=== PATIENT | female | born 1955 | race African-American/Black ===

== ENCOUNTER → 2016-11-25 | Outpatient (REF) | payer MEDICARE ==
[2016-11-25 12:27] LABS: BASO % 0.4 % (0.0-1.0); EOS # 0.2 K/mm3 (0.0-0.50); EOS % 2.1 % (0.0-3.0); LARGE UNSTAINED CELL # 0.1 K/mm3 (0.0-0.4); LARGE UNSTAINED CELL % 1.3 % (0.0-4.0); LYMPH # 1.8 K/mm3 (1.5-4.5); LYMPH % 17.7 % (24.0-44.0); MEAN CORPUSCULAR HEMOGLOBIN 23.7 pg (27.0-33.0); MEAN CORPUSCULAR HGB CONC 32.6 g/dl (32.0-36.5); MEAN CORPUSCULAR VOLUME 72.6 fl (80.0-96.0); MONO # 0.3 K/mm3 (0.0-0.8); MONO % 2.7 % (0.0-5.0); NEUTROPHILS # 7.3 K/mm3 (1.8-7.7); NEUTROPHILS % 75.8 % (36.0-66.0); PLATELET COUNT, AUTOMATED 162 k/mm3 (150-450); RED CELL DISTRIBUTION WIDTH 13.8 % (11.5-14.5); WHITE BLOOD COUNT 9.7 K/mm3 (4.0-10.0)
[2016-11-25 12:39] LABS: ALBUMIN/GLOBULIN RATIO 0.89 (1.00-1.93); ALKALINE PHOSPHATASE 91 U/L (45-117); ALT/SGPT 9 U/L (12-78); ANION GAP 10 MEQ/L (8-16); AST/SGOT 8 U/L (15-37); BILIRUBIN,TOTAL 0.6 MG/DL (0.2-1.0); BLOOD UREA NITROGEN 15 MG/DL (7-18); CALCIUM LEVEL 9.4 MG/DL (8.5-10.1); CARBON DIOXIDE LEVEL 29 MEQ/L (21-32); CHLORIDE LEVEL 101 MEQ/L (98-107); CHOLESTEROL LEVEL 161 MG/DL (<200); FERRITIN 267 NG/ML (8-252); FREE T4 1.42 NG/DL (0.76-1.46); GLOMERULAR FILTRATION RATE > 60.0 (>51); GLUCOSE, FASTING 171 MG/DL (70-105); PERCENT SATURATION 7.8 % (13.2-37.4); POTASSIUM SERUM 3.4 MEQ/L (3.5-5.1); SODIUM LEVEL 140 MEQ/L (136-145); TOTAL IRON BINDING CAPACITY 345 UG/DL (250-450); TOTAL PROTEIN 8.5 GM/DL (6.4-8.2); TRIGLYCERIDES LEVEL 155 MG/DL (<150)
[2016-11-26 11:06] LABS: HEP C VIRUS AB SCREEN MEDICARE 0.2 INDEX (<0.8)
== END ==
LOC: M SFHCPLAZ 09:34
PROVIDERS: ATTEND Nurse Practitioner Family
DX: D64.9 Anemia, unspecified (principal); E11.9 Type 2 diabetes mellitus without complications; E78.5 Hyperlipidemia, unspecified; Z11.4 Encounter for screening for human immunodeficiency virus [HIV]; Z11.59 Encounter for screening for other viral diseases
CPT/HCPCS: 36415; 80053; 80061; 82043; 82728; 83036; 83550; 84439; 84443; 85025; 87899; G0472

== ENCOUNTER → 2016-12-17 | Outpatient (REF) | payer MEDICARE ==
[2016-12-17 15:50] LABS: REASON FOR REVIEW COMPREHENSIVE REVIEW
== END ==
LOC: M SFHCPLAZ 12:35
PROVIDERS: ATTEND Family Medicine
DX: D50.9 Iron deficiency anemia, unspecified (principal)
CPT/HCPCS: 36415; 86256; G0463

== ENCOUNTER 2017-03-23 16:54 | Inpatient (IN) | payer MEDICARE, MEDICAID ==
[~2017-03-23] VITALS: Ht 170.2 cm; Wt 81.5 kg
[2017-03-23] MEDS ORDERED: TIZA4CAP3 PO (17:12)
[2017-03-23] MEDS ORDERED: ACET300T2 PO (17:12)
[2017-03-23] MEDS ORDERED: AZAT50TA2 PO (17:12)
[2017-03-23] MEDS ORDERED: ALPR0.25 PO (17:12)
[2017-03-23] MEDS ORDERED: OMEP40CA2 PO (17:12)
[2017-03-23] MEDS ORDERED: ONDANSETRON 4MG/2ML VIAL (J2405) As Ordered ONE (17:12)
[2017-03-23] MEDS ORDERED: LISI-542 (17:12)
[2017-03-23] MEDS ORDERED: NAPR500T3 PO (17:12)
[2017-03-23] MEDS ORDERED: ATOR1TAB21 PO (17:12)
[2017-03-23] MEDS ORDERED: SERT-138 PO (17:12)
[2017-03-23] MEDS ORDERED: METF500T4 PO (17:12)
[2017-03-23] MEDS ORDERED: LISI10TA4 PO (17:12)
[2017-03-23] MEDS ORDERED: METO1TAB32 PO (17:13)
[2017-03-23] MEDS ORDERED: ONDANSETRON 4MG/2ML VIAL (J2405) IV ONE (18:00)
[2017-03-23] MEDS ORDERED: NS 1,000 ML IV ONE (18:00)
[2017-03-23 18:36] LABS: ADD MANUAL DIFFER YES; MEAN CORPUSCULAR HEMOGLOBIN 23.7 pg (27.0-33.0); MEAN CORPUSCULAR HGB CONC 34.1 g/dl (32.0-36.5); MEAN CORPUSCULAR VOLUME 69.6 fl (80.0-96.0); PLATELET COUNT, AUTOMATED 189 k/mm3 (150-450); RED CELL DISTRIBUTION WIDTH 14.8 % (11.5-14.5); WHITE BLOOD COUNT 13.3 K/mm3 (4.0-10.0)
[2017-03-23 18:47] LABS: ALBUMIN 3.7 GM/DL (3.2-5.2); ALKALINE PHOSPHATASE 90 U/L (45-117); ALT/SGPT 9 U/L (12-78); ANION GAP 9 MEQ/L (8-16); AST/SGOT 5 U/L (15-37); BILIRUBIN,DIRECT 0.1 MG/DL (0.0-0.2); BILIRUBIN,TOTAL 0.4 MG/DL (0.2-1.0); BLOOD UREA NITROGEN 11 MG/DL (7-18); CALCIUM LEVEL 9.7 MG/DL (8.5-10.1); CARBON DIOXIDE LEVEL 27 MEQ/L (21-32); CHLORIDE LEVEL 104 MEQ/L (98-107); CREATININE FOR GFR 1.08 MG/DL (0.55-1.02); GLOMERULAR FILTRATION RATE > 60.0 (>51); GLUCOSE, FASTING 156 MG/DL (70-105); SODIUM LEVEL 140 MEQ/L (136-145); TOTAL PROTEIN 8.3 GM/DL (6.4-8.2)
[2017-03-23 19:03] LABS: ANISOCYTOSIS 1+; MICROCYTOSIS 3+
--- NOTE | 2017-03-23 19:40 | REP ---
CT BRAIN WITHOUT CONTRAST: 03/23/2017. Clinical history: Intractable vertigo. Findings: There are no prior studies. Lateral ventricles symmetric somewhat dilated and proportionate to the mild to moderate degree of atrophy. Third and fourth ventricles were similarly proportionate in size. Basal ganglia show no acute infarct, hemorrhage or mass. The ernandez-white junction differentiation is well maintained. The cortical stripe is preserved. There is no vascular territory infarct, hemorrhage, mass, mass effect or edema. There is old encephalomalacia in the high posterior parietal occipital region on the right and occipital region on the left. Calcifications in the falx. Brainstem was unremarkable. Cerebellar atrophy is noted. The basal cisterns intact. Mastoids and sinuses clear. The skull base and calvarium show no fracture or focal lesion. Impression: 1. Ventriculomegaly and atrophy in proportion and greater than would be expected for age. 2. Encephalomalacia with old infarcts posterior right parietal occipital and left occipital lobe. No intracranial hemorrhage, acute vascular territory infarct, mass, mass effect or edema. 3. Chronic small vessel white matter ischemic changes. No other significant finding. Signed by Chuy Montoya MD 03/24/2017 08:56 A
--- NOTE | 2017-03-23 19:46 | REP ---
RIGHT ANKLE SERIES, COMPLETE: 03/23/2017: Clinical history: Twisting injury to the right ankle. Findings: Four view show the ankle mortis symmetric and preserved. There is no talar dome osteochondral defect. I see no fracture or focal lesion in the distal tibia or fibula. Subtalar joints intact. Both plantar and Achilles insertional spurs are seen and small slight flattening of the hind foot arch. No other findings. Impression. 1. No visible or displaced fracture, avulsion or disruption of the mortise joint.2. Small heel spurs and flattening of the arch. Signed by Chuy Montoya MD 03/24/2017 08:56 A
[2017-03-23] MEDS: HumaLOG INSULIN (NovoLOG) PER UNIT SC SCH (21:00)
[2017-03-23] MEDS ORDERED: ACETAMINOPHEN TAB 650MG DOSE (2X325MG) PO PRN (22:30)
[2017-03-23] MEDS ORDERED: ONDANSETRON 4MG/2ML VIAL (J2405) IV PRN (22:30)
[2017-03-23] MEDS ORDERED: VITA500C10 PO (22:41)
[2017-03-23] MEDS ORDERED: VITACHTA PO (22:41)
[2017-03-23] MEDS ORDERED: traMADol 50 MG TAB PO PRN (22:45)
[2017-03-23] MEDS ORDERED: tiZANidine 4 MG TAB PO PRN (22:45)
[2017-03-23] MEDS ORDERED: GLUCAGON FOR INJ 1 MG VIAL (J1610) SC PRN (23:00)
[2017-03-23] MEDS ORDERED: GLUCOSE 4 GM CHEW TABLET PO PRN (23:00)
[2017-03-23] MEDS ORDERED: DEXTROSE 50% 50 ML SYRINGE IV PRN (23:00)
[2017-03-24] MEDS: SERTRALINE 100 MG TAB PO SCH ×2 (01:02→21:20)
[2017-03-24] MEDS: ATORVASTATIN 20 MG TAB PO SCH ×2 (01:03→21:21)
[2017-03-24] MEDS: SENOKOT S TAB PO SCH ×3 (01:03→21:20)
[2017-03-24] MEDS: ALPRAZolam 0.25 MG TAB PO SCH ×2 (01:03→21:21)
[2017-03-24] MEDS: NS 1,000 ML IV SCH ×2 (02:00→12:31)
[2017-03-24] MEDS: HEPARIN SOD (PORCINE) 5000 UNITS/ML VIAL SQ SCH ×3 (06:01→21:21)
[2017-03-24 07:36] LABS: BASO % 0.4 % (0.0-1.0); EOS # 0.1 K/mm3 (0.0-0.50); EOS % 1.4 % (0.0-3.0); LARGE UNSTAINED CELL # 0.1 K/mm3 (0.0-0.4); LYMPH # 1.8 K/mm3 (1.5-4.5); LYMPH % 17.7 % (24.0-44.0); MEAN CORPUSCULAR HEMOGLOBIN 23.1 pg (27.0-33.0); MEAN CORPUSCULAR VOLUME 70.1 fl (80.0-96.0); MONO # 0.3 K/mm3 (0.0-0.8); MONO % 3.5 % (0.0-5.0); NEUTROPHILS # 7.3 K/mm3 (1.8-7.7); PLATELET COUNT, AUTOMATED 148 k/mm3 (150-450); RED CELL DISTRIBUTION WIDTH 14.8 % (11.5-14.5); WHITE BLOOD COUNT 9.6 K/mm3 (4.0-10.0)
[2017-03-24 07:50] LABS: ANION GAP 5 MEQ/L (8-16); BLOOD UREA NITROGEN 12 MG/DL (7-18); CALCIUM LEVEL 8.9 MG/DL (8.5-10.1); CARBON DIOXIDE LEVEL 30 MEQ/L (21-32); CHLORIDE LEVEL 106 MEQ/L (98-107); FERRITIN 157 NG/ML (8-252); GLOMERULAR FILTRATION RATE > 60.0 (>51); GLUCOSE, FASTING 120 MG/DL (70-105); PERCENT SATURATION 12.7 % (13.2-45.0); POTASSIUM SERUM 3.6 MEQ/L (3.5-5.1); SODIUM LEVEL 141 MEQ/L (136-145); TOTAL IRON BINDING CAPACITY 251 UG/DL (250-450)
[2017-03-24] MEDS: HumaLOG INSULIN (NovoLOG) PER UNIT SC SCH ×4 (08:13→21:00)
[2017-03-24 08:30] LABS: ERYTHROCYTE SEDIMENTATION RATE 54 mm/hr (0-30)
--- NOTE | 2017-03-24 08:40 | IPNPDOC ---
Text Note Date of Service The patient was seen on 03/24/17. NOTE Due to the dictated H&P was not up yet. I am write this to provide some basic information regarding this patient. She is a 61 yo black female presented due to unsteady gait and nausea, vomiting , dizziness started 3 to 4 days ago. She stated when she walks she feels like she was drunk. She also admits to severe nausea, vomiting, none bloody, none bilious, worse with food or drink. She also started having diarrhea yesterday, which was watery and non bloody. She also admits to right temporal headache that was mildly tender to touch started around the same time. She also admits to blurred vision of both eyes that has resolved already. Denies fever/chill, chest pain, sob, abdominal pain, problems with urination. Please see full H&P dictated. Assessment and plan: 1) unsteady gait. CT head did should ventriculomegaly and old infarcts. Dr. Sharma from neurology was consulted and agreed to see patient. Neurocheck. Fall precaution. PT/OT. 2) nausea, vomiting, diarrhea. Possible gastroenteritis vs related to ventriculomegaly. IVF. Clear liquid diet now, advance as tolerated. 3) Right temporal headache that was tender to palpation on examination. Suspect giant cell arteritis. ESR ordered. 4) Chronic conditions. Lupus, DM2, HTN, HLD, hx of CVA and CAD s/p stents. Continue home medications. Holding lisinopril due to dizziness, restart as needed. Her metoprolol was recently lowered from 50 mg to 25 mg by primary due to she was feeling dizzy. Patient discussed with Dr. Harp. LUCY,Kristen, I+O VS, Kristen, I+O Laboratory Tests 03/23/17 18:01 Red Blood Count 4.58, Mean Corpuscular Volume 69.6 L, Mean Corpuscular Hemoglobin 23.7 L, Mean Corpuscular Hemoglobin Concent 34.1, Red Cell Distribution Width 14.8 H 03/24/17 07:10 Red Blood Count 4.28, Mean Corpuscular Volume 70.1 L, Mean Corpuscular Hemoglobin 23.1 L, Mean Corpuscular Hemoglobin Concent 33.0, Red Cell Distribution Width 14.8 H, Neutrophils (%) (Auto) 76.0 H, Lymphocytes (%) (Auto ) 17.7 L, Monocytes (%) (Auto) 3.5, Eosinophils (%) (Auto) 1.4, Basophils (%) ( Auto) 0.4, Neutrophils # (Auto) 7.3, Lymphocytes # (Auto) 1.8, Monocytes # (Auto ) 0.3, Eosinophils # (Auto) 0.1, Basophils # (Auto) 0.0, Calcium Level 8.9 Vital Signs Date Time Temp Pulse Resp B/P (MAP) Pulse Ox O2 Delivery O2 Flow Rate FiO2 03/24/17 07:58 78 97 03/24/17 05:44 96.9 03/23/17 23:04 16 Room Air GME ATTESTATION GME ATTESTATION My preceptor for this patient encounter was physically present in the building during the encounter and was fully available. As needed, all aspects of the patient interview, examination, medical decision making process, and medical care plan development were reviewed and approved by the preceptor. Preceptor is aware and concurs with the plan as stated in the body of this note and will attest to such by his/her cosignature. JUAN MANUEL BLACK DO Mar 24, 2017 08:40
[2017-03-24] MEDS ORDERED: LISINOPRIL 10 MG TAB PO SCH (09:00)
[2017-03-24] MEDS ORDERED: azaTHIOprine 50 MG TAB (J7500) PO SCH (09:00)
[2017-03-24 09:03] LABS: FOLATE 23.9 NG/ML (>5.4)
[2017-03-24 09:04] LABS: VITAMIN B12 LEVEL 480 PG/ML (247-911)
[2017-03-24] MEDS: MULTIVITAMINS CHILDREN'S CHEWABLE TABLET PO SCH (09:34)
[2017-03-24] MEDS: ASPIRIN 81 MG ENTERIC TAB PO SCH (09:34)
[2017-03-24] MEDS: OMEPRAZOLE 20 MG CAP PO SCH (09:34)
[2017-03-24] MEDS: ASCORBIC ACID 500 MG TAB PO SCH (09:35)
[2017-03-24] MEDS: METOPROLOL SUCC *XL* 25MG TAB (TopROL *XL*) PO SCH (09:35)
[2017-03-24 10:34] LABS: COMPLEMENT C4 23.7 MG/DL (10-40)
--- NOTE | 2017-03-24 13:20 | HPE ---
DATE OF ADMISSION: 03/23/2017 Time vanda was seen was at roughly 1:30 a.m. Patient's primary care provider is Dr. Hudson Sinclair. Chief complaint is dizziness, gait instability, walking like a drunk per patient. HISTORY OF PRESENT ILLNESS: 61-year-old female with past medical history of [id number], type 2 diabetes, lupus, osteoarthritis, depression and anxiety, gastroesophageal reflux disease (GERD), irritable bowel syndrome (IBS), anemia, hypertension, hyperlipidemia, coronary artery disease, status post one stent in the left anterior descending (LAD), allergic rhinitis, presented with unstable gait. Per patient, she feels like she walks like a drunk. She also has feeling lightheadedness and dizzy for the past 3-4 days. She also admits to feeling nauseous and vomited up whatever she eats and drinks. However, it was nonbilious and nonbloody. She also admits to a mild headache at the right temporal region. Admits to blurred vision several days ago as well. Per patient, this has happened in the past similar to when she had a lupus flair. However, this time it is much worse. She had a normal bowel movement until this afternoon. She had two diarrheas. Otherwise, she denies any fever or chills. Denies any abdominal pain, any blood in the urine or stool. She did just saw patient's primary care provider, Dr. Sinclair on 03/22/2017 and stated that her metoprolol succinate was reduced from 50 to 25 mg. Also, just a few weeks ago, it was increased from 25 to 50 mg due to blood pressure was elevated with the systolic in the 160s per patient. However, looking back at the patient's record , it was not found that the patient was on metoprolol before. It appears to be a new medication just started back on 03/22/2017. Patient's daughter were also in the room, who is a more reliable historian than the patient. Patient, herself appears to have poor memory. Patient was not on metoprolol succinate 50 at home on record. ALLERGIES: NO KNOWN DRUG ALLERGY. HOME MEDICATIONS: Including: - naproxen 500 mg one tablet every 12 hours - promethazine 25 mg half to one tablet as needed every 12 hours - vitamin D3 2000 units one tablet by mouth daily - vitamin B12 100 mcg one tablet by mouth daily - Benadryl 25 mg one tablet by mouth as needed every 6 hours - aspirin 81 mg one tablet by mouth daily - metoprolol succinate 50 mg tablet once daily - Flonase 50 mcg two spray in each nares once daily - gabapentin 300 mg one tablet by mouth four times a day as needed - ferrous sulfate 325 mg one tablet by mouth daily - nitroglycerin 0.4 mg one tablet sublingual as needed - atorvastatin 20 mg one tablet by mouth daily - metformin 500 mg extended release four tablets with evening meals once daily - sertraline 100 mg one tablet by mouth daily - omeprazole 40 mg one tablet by mouth daily - Xanax 0.25 mg one tablet by mouth twice a day as needed - azathioprine 50 mg one tablet by mouth daily PAST MEDICAL HISTORY: Includin. Type 2 diabetes, not on insulin. 2. Lupus. 3. Osteoarthritis. 4. Depression/anxiety. 5. GERD. 6. Irritable bowel syndrome. 7. Anemia. 8. Hypertension. 9. Hyperlipidemia. 10. Allergic rhinitis. 11. Coronary artery disease, status post myocardial infarction (VT) and one stent. 12. Possible history of CVA. PAST SURGICAL HISTORY: Includin. Hysterectomy. 2. Tonsillectomy. 3. Cholecystectomy. 4. Cardiac stent placement of the LAD in 2009. SOCIAL HISTORY: Patient denies any smoking. Quit 3 months ago. Used to smoke 1 pack per day for 30 years. Denies any drinking or recreational drug use. Patient currently lives with her daughter. Have no pets. FAMILY HISTORY: Patient's mother had diabetes and hypertension. Sister from lupus. REVIEW OF SYSTEMS: GENERAL: Patient denies any recent traveling or sick contact. Denies any fever or chills. Admits to generalized dizziness. Admits to gait imbalance. HEENT: Denies any changes with smell, hearing or taste. Admits to blurred vision a few days ago. Denies any trouble swallowing. CARDIOVASCULAR: Denies any chest pain, trouble breathing. Admits to dizziness. PULMONARY: Denies any trouble breathing. GASTROINTESTINAL (GI): Admits to nausea, vomiting that is worse with food, also just started diarrhea today. However, the diarrhea and vomitus was nonbloody. GENITOURINARY (): Denies any problem with urination, urinary urgency or blood in the urine. HEMATOLOGY/ONCOLOGY: Denies any easy bruising or any bleeding anywhere. Denies any weight changes. ENDOCRINE: Admits to type 2 diabetes. Denies any cold or hot intolerance. SKIN: Denies any rash or ulcerations, lumps or bumps. NEUROLOGIC: Denies any weakness on any one side of her body. However, she did admit to a stroke in the past and also admits to feeling generalized dizziness. Also, she admits to walking feeling like she is drunk. PSYCHIATRIC: Admits to anxiety/depression. PHYSICAL EXAMINATION: VITAL SIGNS: Temperature 96.7. Pulse 82. Respirations 18. Blood pressure 166/72. Oxygen was satting at 100% on room air. GENERAL: Patient is a pleasant, elderly female who was alert, awake, oriented times three. Does not appear to be in distress, lying comfortably in bed with head elevated at 30 degrees. HEENT: Normocephalic, atraumatic. Extraocular movements intact. Mucous moist. NECK: Supple. No neck lymphadenopathy. CARDIOVASCULAR: Regular rate, rhythm. 2/6 systolic heart murmur. LUNGS: Clear to auscultate bilaterally. No wheeze, rales, rhonchi. ABDOMEN: Positive bowel sounds. Soft. Nontender. Nondistended. No peritoneal signs. No ecchymosis. EXTREMITIES: No edema, clubbing or cyanosis. SKIN: Warm and dry. NEUROLOGIC: Cranial nerves II-XII intact. No neurological deficit. However, patient's right temporal region was mildly tender to palpation. LABORATORIES: WBC 13.3, hemoglobin 10.9, hematocrit 31.8 with platelet count of 189, MCV of 69.6. Sodium 140, potassium 4, chloride 104, bicarbonate 27, BUN 11, creatinine 1.08, GFR greater than 60, fasting glucose 156, calcium 9.7, total bilirubin 0.4, direct bilirubin 0.1, AST 5, ALT 9, alkaline phosphatase 90, total CK 43, CK-MB 1, troponin less than 0.02, total protein 8.3, albumin 3.7, lipase 79, glucose 117. Blood culture times two is pending. Patient had a head CT in the emergency room without contrast. It shows ventriculomegaly and atrophy in proportion and greater than would expect for age. Encephalomalacia with old infarcts posterior right parietal lobe and lateral occipital lobe. No acute intracranial hemorrhage or acute vascular territory infarct mass, mass effect or edema. Chronic small vessel white matter ischemic changes. No other significant finding. Patient also had a ankle x-ray for the right ankle, which shows no visible displaced fracture, avulsion, disruption of the mortis joint, a small heel spur and flattening of the arch. ASSESSMENT AND PLAN: 61-year-old female with past medical history most significantly for lupus, type 2 diabetes, coronary artery disease status post myocardial infarction and one stent, history of stroke, hypertension, hyperlipidemia, irritable bowel syndrome, gastroesophageal reflux disease, anxiety/depression, allergic rhinitis presented with: 1. Gait instability with headache and nausea, vomiting and also just started diarrhea today. Dr. Sharma from neurology will be contacted in the morning to help to assess patient's gait instability. CT of the head does show ventriculomegaly and atrophy in addition to encephalomalacia and old infarcts posterior right parietooccipital and left lobe. Continue patient on fall precaution and start patient only on clear liquid diet for now due to nausea and vomiting. Will check orthostatic vital signs. Continue Zofran every 6 hours as needed. At this point, patient's differential possibly include hydrocephalus and transient ischemic attack (TIA) versus gastroenteritis versus side effect of metoprolol, which was recently increased, then decreased again versus from lupus. Also, possibly joint osteoarthritis. Continue to monitor patient. 2. Nausea, vomiting and diarrhea possibly secondary to gastroenteritis. GI panel has been ordered. Will followup. Blood culture times two has been ordered too. Will followup due elevated white count, also poor oral intake with nausea and vomiting. 3. Headache with right temporal region mildly tender to palpation. Erythrocyte sedimentation rate (ESR) has been ordered. Will followup. Patient also had bilateral blurred vision, however. At this point, the suspicion for giant cell arteritis is low. However, will obtain an ESR and continue to monitor patient. 4. Dizziness possibly secondary to stated above. Creatinine is slightly above 1, which was 1.08. Will start patient on gentle hydration with normal saline at a rate of 100 mL/hr. 5. Type 2 diabetes. Continue insulin sliding scales. 6. History of lupus. Continue home medication. 7. Anxiety/depression. Continue home Xanax, sertraline and tizanidine. 8. Irritable bowel syndrome. Continue to monitor. 9. History of hypertension. Continue atenolol. Lisinopril has been discontinued at this point due to patient complaint of dizziness. Will restart as needed. 10. History of coronary artery disease status post myocardial infarction and stent. Continue beta-beth, aspirin and statin. 11. Deep venous thrombosis (DVT) prophylaxis. Continue subcu heparin 5000 units subcutaneously every 8 hours. 12. Fluid, electrolyte and diet. Patient is on normal at a rate of 100 mL/hr and there is no electrolyte abnormalities at this point besides the hyperglycemia. Will start patient on clear liquid diet that is consistent carbohydrate. DISPOSITION: Patient had gait instability. Neurology has been consulted. Will followup with their recommendation. Patient also has nausea, vomiting and diarrhea, possibly gastroenteritis versus related to neurological structure such as hydrocephalus. Patient also has a headache. Will rule out giant cell arteritis. In addition, she does have anemia. Will obtain iron study, B12 and folate. Patient's morning attending is Dr. Yan. Patient has been discussed with the attending doctor, Dr. Harp. My preceptor for this patient encounter was Dr. Ford Harp. The preceptor was physically present in the building during the encounter and was fully available. As needed, all aspects of the patient interview, examination, medical decision making process, and medical care plan development were reviewed and approved by the preceptor. The preceptor is aware and concurs with the plan as stated in the body of this note and will attest to such by his/her co-signature. JOLYNN
--- NOTE | 2017-03-24 13:36 | IPN ---
DATE: 03/24/2017 61-year-old female seen at bedside. She still feels somewhat weak, dizzy intermittently but she states she is going to the restroom fine. She has had no more episodes of nausea, vomiting and diarrhea. According to her family members this started approximately 3 days ago, progressively got worse yesterday. She denies any hematochezia. Denies any dysuria or frequency, but she was noted to have a slightly increased white count when she came in as well as sed rate. PHYSICAL EXAMINATION: Temperature is 96.9, pulse 78, respiratory rate is 16, blood pressure is 140/79, SPO2 is 98% on room air. GENERAL: The patient appears to be in no acute distress. She is alert and oriented, pleasant. HEENT: Unremarkable. Mucosal membranes relatively moist. NECK: Supple. LUNGS: Clear to auscultation. HEART: Regular rate and rhythm. ABDOMEN: Soft. EXTREMITIES: No edema or calf tenderness. LABORATORY DATA: White count is 9.6 down from 13,000, hemoglobin 9.9 and platelets are 148,000. Sodium 141, potassium 3.6, chloride 106, bicarb 30, anion gap 5, BUN is 12, creatinine 0.9, glucose 120. Iron studies show a total iron of 32, TIBC 251, transferrin 12.7, and her ferritin is 157. This would not be consistent with iron deficient anemia nor would it be consistent with anemia of chronic disease since her ferritin level is normal. Her B12 level was 480, folate level was 23.9, anticardiolipin is pending. CHRISTINA is pending. Total complement is pending. Blood cultures are pending times two. Head CT as documented previously ventriculomegaly and atrophy in proportion greater than would be expected for age, encephalomalacia with old infarcts posterior right parietal, occipital and left occipital lobe. No intracranial hemorrhage, acute vascular territory infarct, mass, mass effect or edema. Chronic small vessel white matter ischemic changes. No other significant findings. ASSESSMENT/PLAN: 1. Unsteady gait with CT findings outlined above. Dr. Sharma has been consulted. Appreciate further input from him. Continue neuro checks, physical therapy and occupational therapy. 2. Elevated sed rate with right temporal headache. The note reflective this morning was questionable giant cell arteritis. She does not have any visual complaints, no amaurosis fugax complaints when you ask her and I would suspect that the sed rate would be higher than it is. I am going to forego any prednisone for right now until I have had a chance to discuss this further with neurology and once neurology has had a chance to see her, but that is a part of the differential of her symptomatology, is possible polymyalgia rheumatica with or without giant-cell arteritis. 3. Chronic conditions such as lupus. 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 4. Diabetes. Continue fingersticks a.c. and at bedtime. I will continue to follow and make adjustments in her medications as needed. 5. Hyperlipidemia. Continue statin. 6. Prior history of CVA as outlined above. Again, appreciate neurology's input as well as physical therapy and occupational therapy. 7. Coronary artery stent placements in the past. 8. Deep vein thrombosis (DVT) prophylaxis with subcu heparin.
[2017-03-24 14:12] VITALS: BP 154/71
[2017-03-24 16:00] VITALS: BP 136/65
[2017-03-24 18:00] VITALS: BP_SYST 160; BP_DIAS 69; BP_DIAS 70
[2017-03-24 20:00] VITALS: BP 170/74
--- NOTE | 2017-03-24 20:30 | REPUSA ---
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 History of lupus. Comparison is made to previous head CT dated . TECHNIQUE: Multisequence, multiplanar MRI imaging of brain without contrast. FINDINGS: The lateral, third, and fourth ventricles are prominent consistent with moderate degree of generalized cerebral atrophy. There is no evidence of intracranial mass, hemorrhage, midline shift, acute infarct, or abnormal extra-axial fluid collection seen. Paranasal sinuses and mastoids are clear. Pituitary gland and optic chiasm and orbits are normal. C PA angle regions are normal. There is normal signal void seen in the rosebud of Gibson vessels. IMPRESSION: Enlargement of the ventricles indicating moderate degree of generalized cerebral atrophy, without evidence of intracranial mass, hemorrhage, or acute infarct seen at this time.
[2017-03-24 21:31] VITALS: BP 150/78
[2017-03-24] MEDS: NORTRIPTYLINE 25 MG CAP PO SCH (23:50)
[2017-03-24 23:59] VITALS: BP_SYST 141; BP_SYST 150; BP_SYST 154; BP_DIAS 74; BP_DIAS 75; BP_DIAS 77
--- NOTE | 2017-03-25 00:02 | PHACANCOPD ---
PHARMACY VANCOMYCIN DOSING Pt Demographics Demographics Patient Age:61 , Weight:73.200 , Gender: female Adjusted Body Weight Date: 03/24/17, Adjusted Body Weight: Kg Events Past 24 Hours Events Past 24 Hours: NO: Dialysis, Diuretic Therapy, Change in CrCl, Fever, Elevation in WBC, Pending Diagnostics, Pending Procedures, Other Vancomycin Vancomycin Target Ranges: 15-20 mcg/ml Vancomycin Load Y/N: Yes Load Dose Date Time Vancomycin Load Dose: 1500MG Date: 03-25 Time: 0000 Vancomycin Dose Date: 03/24/17. Current Vancomycin Dose: [1000mg q12h] Intermittent Dosing?: No Labs Labs Item Value Date Time White Blood Count 9.6 K/mm3 03/24/17 0710 Creatinine 0.90 MG/DL 03/24/17 0710 Blood Urea Nitrogen 12 MG/DL 03/24/17 0710 Vital Signs Label Value Date Time Patient Temperature 98.0 degrees F 03/24/171999 Temperature Source Temporal 03/24/171999 Micro Microbiology 03/24/17 Blood Culture - Preliminary, Resulted 03/24/17 Blood Culture, Received Pending Creatinine Clearance Date:03/24/17. Creatinine Clearance: [~70]. Pending Labs Trough 0818 @2300 Assessment and Plan Maintaining Current Dose?: Yes Reason for dose change: No Dose Change Pharmacist Note Pharmacist Note Date: 03/24/17. Pharmacist note:Dosed at 1000mg q12h with a trough ordered for 08 -18 @2300. Will continue to monitor and make adjustments as needed [facility] Mar 25, 2017 00:02
[2017-03-25] MEDS: VANCOMYCIN HCL 1,000 MG, VIAL MATE ADAPTER 1 EACH in D5W 250 ML IV SCH ×2 (00:56→12:02)
[2017-03-25] MEDS ORDERED: VANCOMYCIN HCL 500 MG in D5W MINI-BAG PLUS 100 ML IV ONE (01:00)
[2017-03-25 04:00] VITALS: BP 130/69
[2017-03-25] MEDS: HEPARIN SOD (PORCINE) 5000 UNITS/ML VIAL SQ SCH ×3 (05:25→22:59)
[2017-03-25 05:39] LABS: BASO % 0.5 % (0.0-1.0); EOS # 0.2 K/mm3 (0.0-0.50); EOS % 2.8 % (0.0-3.0); LARGE UNSTAINED CELL # 0.1 K/mm3 (0.0-0.4); LARGE UNSTAINED CELL % 1.1 % (0.0-4.0); LYMPH % 23.3 % (24.0-44.0); MEAN CORPUSCULAR HEMOGLOBIN 23.4 pg (27.0-33.0); MEAN CORPUSCULAR HGB CONC 33.4 g/dl (32.0-36.5); MONO # 0.2 K/mm3 (0.0-0.8); MONO % 2.8 % (0.0-5.0); NEUTROPHILS # 5.7 K/mm3 (1.8-7.7); NEUTROPHILS % 69.5 % (36.0-66.0); PLATELET COUNT, AUTOMATED 155 k/mm3 (150-450); RED CELL DISTRIBUTION WIDTH 14.8 % (11.5-14.5); WHITE BLOOD COUNT 8.2 K/mm3 (4.0-10.0)
[2017-03-25 05:52] LABS: ANION GAP 8 MEQ/L (8-16); BLOOD UREA NITROGEN 8 MG/DL (7-18); CALCIUM LEVEL 9.1 MG/DL (8.5-10.1); CARBON DIOXIDE LEVEL 29 MEQ/L (21-32); CHLORIDE LEVEL 106 MEQ/L (98-107); GLOMERULAR FILTRATION RATE > 60.0 (>51); GLUCOSE, FASTING 111 MG/DL (70-105); POTASSIUM SERUM 3.8 MEQ/L (3.5-5.1); SODIUM LEVEL 143 MEQ/L (136-145)
[2017-03-25 08:00] VITALS: BP 144/78
[2017-03-25] MEDS: HumaLOG INSULIN (NovoLOG) PER UNIT SC SCH ×4 (08:08→20:20)
[2017-03-25] MEDS: ASCORBIC ACID 500 MG TAB PO SCH (08:09)
[2017-03-25] MEDS: METOPROLOL SUCC *XL* 25MG TAB (TopROL *XL*) PO SCH (08:09)
[2017-03-25] MEDS: OMEPRAZOLE 20 MG CAP PO SCH (08:09)
[2017-03-25] MEDS: LORATADINE 10 MG TAB PO SCH (08:09)
[2017-03-25] MEDS: ASPIRIN 81 MG ENTERIC TAB PO SCH (08:09)
[2017-03-25] MEDS: MULTIVITAMINS CHILDREN'S CHEWABLE TABLET PO SCH (08:09)
[2017-03-25] MEDS: FLUTICASONE PROP 0.05% NASAL SPRAY 16 GM (FLONASE) SCH (08:10)
[2017-03-25] MEDS: SENOKOT S TAB PO SCH ×2 (08:10→20:39)
--- NOTE | 2017-03-25 08:39 | ECGEPIP ---
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
[2017-03-25] MEDS ORDERED: SLF 3 ML SYR IV PRN (09:30)
--- NOTE | 2017-03-25 10:32 | REP ---
MR angiography the brain without contrast: History: CVA. Technique: 3-D [id number] MR angiography of the brain is acquired in the usual fashion and maximal intensity projection images were generated in rotational format about the vertical and horizontal axes. In addition, source axial T1-weighted images are viewed in cine mode. MR angiographic findings: The right distal vertebral artery is patent. The left distal vertebral artery ends without anastomosing with the basilar. The basilar artery is somewhat small diffusely. Posterior cerebral and superior cerebellar vessels are patent bilaterally. There is persistent origin of the left posterior cerebral artery. Posterior communicator arteries are patent bilaterally. The distal internal carotid arteries are unremarkable. Anterior and middle cerebral arteries appear intact. There is no visible hernandez aneurysm or arteriovenous malformation. Impression: Somewhat diminutive size of the posterior circulation. Basilar artery fed only by the right vertebral. Persistent origin of the left posterior cerebral artery. Otherwise unremarkable MR angiography the brain. Signed by Jordon Calles MD 03/25/2017 12:51 P
--- NOTE | 2017-03-25 10:56 | REP ---
MR ANGIOGRAPHY OF THE CAROTIDS WITHOUT AND WITH IV GADOLINIUM: HISTORY: Stroke. TECHNIQUE: The gadolinium enhancement dose is 25 mL of intravenous ProHance. Pre and post gadolinium enhanced MR angiography is acquired. Maximal intensity projection images are generated and viewed rotational. Source axial and coronal images are reviewed. MR ANGIOGRAPHIC FINDINGS: The great vessel origins are unremarkable. The bovine arch anomaly is seen incidentally. The common carotid arteries are unremarkable bilaterally. The proximal vertebral arteries are intact and symmetric. There is mild plaquing in the carotid bulbs bilaterally right a little more so than left. 30% stenosis right proximal internal carotid artery is seen. No high-grade stenosis seen on either side. No significant plaquing on the left. Internal carotid arteries are slightly tortuous but intact. IMPRESSION: No high-grade carotid stenosis seen. Mild carotid bulb plaquing bilaterally. Signed by Jordon Calles MD 03/25/2017 12:51 P
[2017-03-25 12:00] VITALS: BP 199/87
[2017-03-25] MEDS: SLF 3 ML SYR IV SCH ×2 (12:03→20:40)
[2017-03-25 16:00] VITALS: BP 134/77
[2017-03-25 19:22] VITALS: BP 148/70
[2017-03-25] MEDS: SERTRALINE 100 MG TAB PO SCH (20:39)
[2017-03-25] MEDS: NORTRIPTYLINE 25 MG CAP PO SCH (20:39)
[2017-03-25] MEDS: ATORVASTATIN 20 MG TAB PO SCH (20:39)
[2017-03-25] MEDS: ALPRAZolam 0.25 MG TAB PO SCH (20:39)
[2017-03-25 23:59] VITALS: BP 148/70
[2017-03-26] VITALS (20 sets, daily range): BP systolic 117–150; BP diastolic 63–78; O2SAT 90–96
[2017-03-26 00:06] LABS: SJOGREN'S ANTI SS-A 5.5 AI (0.0-0.9); SJOGREN'S ANTI SS-B <0.2 AI (0.0-0.9)
[2017-03-26] MEDS: VANCOMYCIN HCL 1,000 MG, VIAL MATE ADAPTER 1 EACH in D5W 250 ML IV SCH ×2 (00:08→12:44)
--- NOTE | 2017-03-26 01:07 | PHACANCOPD ---
PHARMACY VANCOMYCIN DOSING Pt Demographics Demographics Patient Age:61 , Weight:78.600 , Gender: female Adjusted Body Weight Date: 03/24/17, Adjusted Body Weight: Kg Events Past 24 Hours Events Past 24 Hours: NO: Dialysis, Diuretic Therapy, Change in CrCl, Fever, Elevation in WBC, Pending Diagnostics, Pending Procedures, Other Vancomycin Vancomycin Target Ranges: 15-20 mcg/ml Vancomycin Load Y/N: Yes Load Dose Date Time Vancomycin Load Dose: 1500MG Date: 03-25 Time: 0000 Vancomycin Dose Date: 03/24/17. Current Vancomycin Dose: [1000mg q12h] Intermittent Dosing?: No Labs Labs Item Value Date Time White Blood Count 8.2 K/mm3 03/25/17518 Creatinine 1.00 MG/DL 03/25/17518 Blood Urea Nitrogen 8 MG/DL 03/25/17518 Vancomycin Level Trough 16.4 UG/ML 03/25/17 225 Vital Signs Label Value Date Time Patient Temperature 97.9 degrees F 03/25/17 2359 Temperature Source Temporal 03/25/17 235 Micro Microbiology 03/24/17 Blood Culture - Preliminary, Resulted 03/24/17 Blood Culture - Preliminary, Resulted No growth after 24 hours . All specim... 03/25/17 MRSA Screen, Received Pending Creatinine Clearance Date:03/24/17. Creatinine Clearance: [~70]. Pending Labs Trough 03-25 @2300 Assessment and Plan Maintaining Current Dose?: Yes Reason for dose change: No Dose Change Pharmacist Note Pharmacist Note Date: 03/24/17. Pharmacist note:Trough of 16.4 is within target range. Will continue current dosing. Will continue to monitor and make adjustments as needed. VADIM RIVAS [facility] Mar 26, 2017 01:07
[2017-03-26] MEDS: HEPARIN SOD (PORCINE) 5000 UNITS/ML VIAL SQ SCH ×3 (05:16→22:00)
[2017-03-26] MEDS: SLF 3 ML SYR IV SCH ×3 (05:16→22:02)
[2017-03-26 05:52] LABS: BASO % 0.4 % (0.0-1.0); EOS # 0.3 K/mm3 (0.0-0.50); EOS % 4.1 % (0.0-3.0); LARGE UNSTAINED CELL # 0.1 K/mm3 (0.0-0.4); LARGE UNSTAINED CELL % 1.5 % (0.0-4.0); LYMPH # 1.6 K/mm3 (1.5-4.5); LYMPH % 18.6 % (24.0-44.0); MEAN CORPUSCULAR HGB CONC 34.5 g/dl (32.0-36.5); MEAN CORPUSCULAR VOLUME 69.4 fl (80.0-96.0); MONO # 0.3 K/mm3 (0.0-0.8); MONO % 3.7 % (0.0-5.0); NEUTROPHILS # 5.7 K/mm3 (1.8-7.7); NEUTROPHILS % 71.7 % (36.0-66.0); PLATELET COUNT, AUTOMATED 151 k/mm3 (150-450); RED CELL DISTRIBUTION WIDTH 14.9 % (11.5-14.5); WHITE BLOOD COUNT 7.9 K/mm3 (4.0-10.0)
[2017-03-26 05:55] LABS: ADD MORPHOLOGY? YES
[2017-03-26 06:00] LABS: ANION GAP 8 MEQ/L (8-16); BLOOD UREA NITROGEN 7 MG/DL (7-18); CALCIUM LEVEL 8.7 MG/DL (8.5-10.1); CARBON DIOXIDE LEVEL 30 MEQ/L (21-32); CHLORIDE LEVEL 104 MEQ/L (98-107); CREATININE FOR GFR 0.99 MG/DL (0.55-1.02); GLOMERULAR FILTRATION RATE > 60.0 (>51); GLUCOSE, FASTING 113 MG/DL (70-105); POTASSIUM SERUM 3.6 MEQ/L (3.5-5.1); SODIUM LEVEL 142 MEQ/L (136-145)
[2017-03-26 07:39] LABS: MICROCYTOSIS 3+
[2017-03-26 07:43] LABS: ANISOCYTOSIS 1+; HYPOCHROMASIA 1+
[2017-03-26] MEDS: LORATADINE 10 MG TAB PO SCH (09:03)
[2017-03-26] MEDS: MULTIVITAMINS CHILDREN'S CHEWABLE TABLET PO SCH (09:03)
[2017-03-26] MEDS: HumaLOG INSULIN (NovoLOG) PER UNIT SC SCH ×4 (09:03→22:01)
[2017-03-26] MEDS: OMEPRAZOLE 20 MG CAP PO SCH (09:03)
[2017-03-26] MEDS: SENOKOT S TAB PO SCH ×2 (09:04→21:59)
[2017-03-26] MEDS: ASPIRIN 81 MG ENTERIC TAB PO SCH (09:04)
[2017-03-26] MEDS: METOPROLOL SUCC *XL* 25MG TAB (TopROL *XL*) PO SCH (09:04)
[2017-03-26] MEDS: ASCORBIC ACID 500 MG TAB PO SCH (09:04)
[2017-03-26] MEDS: FLUTICASONE PROP 0.05% NASAL SPRAY 16 GM (FLONASE) SCH (09:05)
--- NOTE | 2017-03-26 09:54 | IPN ---
DATE: 03/26/2017 61-year-old female seen at bedside resting comfortably. She denies any complaints at this time. No headaches. No blurry vision. No chest pain. No nausea or vomiting. OBJECTIVE: Temperature is 97.5, pulse 73, respiratory rate is 18, blood pressure 130/69, SPO2 is 97% on room air. GENERAL: The patient appears to be in no acute distress. She is alert, pleasant. HEENT: Unremarkable. LUNGS: Clear. HEART: Regular rhythm. ABDOMEN: Soft. EXTREMITIES: No edema. No calf tenderness. Associate Field Service Engineer strength is equal. NEURO: Cranial nerves II through XII are grossly intact. LABORATORY DATA: White count 7.9, hemoglobin 10.1, platelets 151,000. Sodium 142, potassium 3.6, chloride 104, bicarb 30, anion gap 8, BUN 7, creatinine of 0.99. Her screening does show a positive CHRISTINA, which we know that she has underlying history of lupus. Her SS-A IgG antibody is positive 5.5. RELIEF SALESPERSON IgG antibody is elevated at 5.6. Complement studies are unremarkable. She did have a one time blood culture positive for staph hominis. I am repeating the blood cultures. This likely is contaminant, but will leave her on vancomycin for another 24 hours. ASSESSMENT/PLAN: 1. Unsteady gait with CT findings outlined previously. Her MRI, MRA did not show any acute findings. The carotids were unremarkable for any significant stenosis and 2-D echo is pending at this time. Will continue neuro checks, physical therapy, occupational therapy. However, felt that she was good from their standpoint, but she does continue to have issues with unsteady gait. Family member is present at bedside and I did discuss the ongoing plan. Will leave her on telemetry for another 24-48 hours and have hopefully a discharge plan ready for her by Tuesday. 2. Elevated sed rate, right temporal headache which has resolved. No amaurosis fugax. No suggestive sign of giant cell arteritis. She does have underlying history of rheumatoid disease, but no arthritic issues at this time. Therefore, we have held off on any prednisone. 3. Chronic conditions such as lupus that she follows with rheumatology and her next appointment is in the beginning of April in [place]. 4. Diabetes. Continue fingersticks before meals and at bedtime with sliding scale coverage and will advance her diet and consistent carbohydrate today. 5. Hyperlipidemia. Continue statin. 6. Prior history of cerebrovascular accident (CVA). Again, appreciate neurology's input. Occupational therapy has signed off on her; however, physical therapy did feel that she still has a way to go with her issues with deconditioning and gait instability. 7. Coronary artery disease with stent placements in the past, stable. Continue on aspirin, Lipitor, and beta-beth, which she is on metoprolol. 8. Deep vein thrombosis (DVT) prophylaxis subcu heparin. DISPOSITION: The patient will be here still for a few more days. Will continue on telemetry for another 24-48 hours.
--- NOTE | 2017-03-26 11:48 | ECGEPIP ---
Stationary ECG Study [facility] Test Date: 2017-03-24 Pat Name: MARIBEL SINGH Department: Room: [place] [address] Gender: F Rating Examiner: NAHOMY : 1955 Requested By: ANJELICA OROPEZA Order Number: [id number] Reading MD: Ryan Plunkett Measurements Intervals [place] Rate: 70 P: 49 MD: 169 QRS: -3 QRSD: 86 T: 29 QT: 428 QTc: 462 Interpretive Statements SINUS RHYTHM NONSPECIFIC ST & T-WAVE ABNORMALITY SIMILAR 03/23/17 Electronically Signed On 03-26-2017 11:48:08 EDT by Ryan Plunkett
--- NOTE | 2017-03-26 15:10 | CR ---
DATE OF CONSULTATION: 03/24/2017 REFERRING PROVIDER: Dr. Roscoe Myers REASON FOR CONSULTATION: Gait instability. Rekha Yusuf is a 61-year-old female who has history of the systemic lupus, presenting to [facility] after having upper gastroenteritis with nausea, vomiting, and also even diarrhea. The patient has been having her blood pressure medications adjusted over the last several weeks. She started to notice she has been experiencing episodes of lightheadedness upon standing. She denies any nidhi vertigo. The patient states that she has been having mild headaches. The patient does have MRI evidence of prior strokes. MRI does not reveal any acute strokes. The patient does have an elevated erythrocyte sedimentation rate (ESR), and this may be related to her underlying lupus. The patient has been on tizanidine, which is a muscle relaxer, which can lead to lightheadedness, dizziness, and even syncope. The patient at the present time states that her balance is improved. On occasion, intermittently, her balance can be off. The patient denies any sensory changes of the face, arm, or legs. She denies any slurring of her speech or aphasia. She does take a baby aspirin at home every day. She does have a history of myocardial infarction. The patient states that her cholesterol and blood pressure have generally been well controlled. She states that her diabetes is also well controlled. PAST MEDICAL HISTORY: Type 2 diabetes non-insulin dependent, lupus, osteoarthritis, depression and anxiety, gastroesophageal reflux disease, irritable bowel syndrome, anemia, hypertension, hyperlipidemia, allergic rhinitis, coronary artery disease status post myocardial infarction and one stent, MRI evidence of strokes. PAST SURGICAL HISTORY: Hysterectomy, tonsillectomy, cholecystectomy, cardiac stent placement in left anterior descending (LAD) in 2009. SOCIAL HISTORY: The patient is a former tobacco user, quit 3 months ago. Used to smoke one pack per day for 30 years. Denies any alcohol or recreational drug use. FAMILY HISTORY: Noncontributory. ALLERGIES: None. REVIEW OF SYSTEMS: 14-point review of systems obtained and is negative except as per history of present illness (HPI). HOME MEDICATIONS: - naproxen 500 mg by mouth every 12 hours - promethazine 25 mg half to whole tablet by mouth every 12 hours - vitamin D3 2000 international units by mouth every day - vitamin B12 1000 mcg by mouth every day - Benadryl 25 mg by mouth every 6 hours as needed allergy - aspirin 81 mg by mouth every day - metoprolol succinate 50 mg by mouth every day - Flonase 50 mcg two sprays in each nostril daily - gabapentin 300 mg by mouth four times a day as needed - ferrous sulfate 325 mg by mouth every day - nitroglycerin 0.4 mg by mouth sublingual chest pain - atorvastatin 20 mg by mouth every day - metformin 500 mg extended release four tablets by mouth every day - sertraline 100 mg by mouth every day - omeprazole 40 mg by mouth every day - Xanax 0.25 mg by mouth twice a day - azathioprine 50 mg by mouth every day PHYSICAL EXAMINATION: Blood pressure is 136/65, pulse rate 60, respiratory rate is 20, oxygenation is 98% on room air, temperature 97.1 degrees Fahrenheit, height is 5 feet 7 inches, current weight is 73 kg. The patient is awake, alert, oriented to person, place, and time. Speech, language, comprehension, and repetition are intact. Pupils are 3 mm, round, reactive to light. Extraocular movements are intact in all directions without nystagmus. Sensation in V1, V2, V3 is intact to light touch. No facial asymmetry to activation. Palate elevates symmetrically. Tongue is midline. No weakness of sternocleidomastoids bilaterally. There is no pronator drift. Strength is 5/5, including bilateral deltoids, biceps, triceps, hand set up mold technician, iliopsoas, quadriceps, anterior tibialis. [id number] reveals normal movements without any gross ataxia or dysmetria. Sensory is intact to light touch in all four extremities. Deep tendon reflexes are 2s throughout. Babinski signs are absent. ASSESSMENT: Intermittent gait imbalance and dizziness, possibly multifactorial, related to underlying diabetes, use of tizanidine, gabapentin, and also new antihypertensive medication. MRI evidence suggests chronic and possibly even subacute strokes. Consider increasing aspirin to 325 mg by mouth every day. Continue atorvastatin 20 mg by mouth every day. Optimize hypertension, hyperlipidemia, and diabetes. Physical therapy (PT) and occupational therapy (OT). Continue telemetry monitoring to assess for any bouts of atrial fibrillation. The patient reports history of atrial fibrillation (AFib). AFib may be contributing towards the patient's intermittent dizziness and also evidence of strokes. If AFib is found, can consider treatment with anticoagulation rather than aspirin alone. Due to coronary artery disease, would defer management of antiplatelet therapy to the patient's palletizer, Dr. Zen Mayfield. The patient can be seen in the [facility] Neurology office upon discharge.
--- NOTE | 2017-03-26 16:47 | ECHO ---
DATE OF PROCEDURE: 03/26/2017 REFERRING PHYSICIAN; Dr. Zaman INDICATION: Heart murmur. HEIGHT: 170 cm WEIGHT: 73 kg DIMENSIONS: IV 1.2 LV 4.6 LVPW 1.2 LA 2.9 aorta 3.0. The study is of acceptable technical quality. The patient is in sinus rhythm. Left ventricle is of normal size. There is mild left ventricular hypertrophy and grossly preserved LV systolic function with estimated LVEF 55-60%. The apical segments seem to have deep trabeculations and this my represent mild form of "LV non-compaction." The right ventricle appears normal. Left atrium is at least mildly enlarged. Right atrium appears normal. Aortic, mitral and tricuspid valves appear normal. Pulmonic valve was not well seen. Trivial pericardial effusion is noted. Inferior vena cava is of normal size. Aortic root, aortic arch and abdominal aorta all appear reasonably normal. Doppler interrogation reveals no aortic stenosis and mild insufficiency. There is no significant mitral valve disease. Tricuspid valve is also functionally competent. Mitral inflow pattern and tissue Doppler imaging of mitral annulus reveal grade 1 diastolic dysfunction. E prime velocities of mitral annulus are very low (3.8 and 5.2 cm/sec in septal and lateral annulus respectively). CONCLUSIONS: 1. Study is of acceptable technical quality. 2. Normal LV size with mildly LVH and preserved LV systolic function, grade 1 diastolic dysfunction. Cannot rule out mild low mild form of LV non-compaction. 3. Mild aortic insufficiency. 4. Mild mitral insufficiency. 5. Likely normal central venous pressure. 6. Unable to estimate pulmonary artery pressure. COMMENT: Subacute bacterial endocarditis (SBE) prophylaxis is not recommended. MTDD
[2017-03-26] MEDS: NORTRIPTYLINE 25 MG CAP PO SCH (21:59)
[2017-03-26] MEDS: SERTRALINE 100 MG TAB PO SCH (21:59)
[2017-03-26] MEDS: ATORVASTATIN 20 MG TAB PO SCH (21:59)
[2017-03-26] MEDS: ALPRAZolam 0.25 MG TAB PO SCH (22:00)
[2017-03-27] VITALS (18 sets, daily range): BP systolic 121–145; BP diastolic 60–73; PULSE 82; O2SAT 90–99
[2017-03-27] MEDS: VANCOMYCIN HCL 1,000 MG, VIAL MATE ADAPTER 1 EACH in D5W 250 ML IV SCH (00:05)
[2017-03-27] MEDS: HEPARIN SOD (PORCINE) 5000 UNITS/ML VIAL SQ SCH ×3 (05:09→22:46)
[2017-03-27] MEDS: SLF 3 ML SYR IV SCH ×3 (05:09→22:46)
[2017-03-27 05:53] LABS: BASO % 0.4 % (0.0-1.0); EOS # 0.3 K/mm3 (0.0-0.50); EOS % 3.1 % (0.0-3.0); LARGE UNSTAINED CELL # 0.1 K/mm3 (0.0-0.4); LARGE UNSTAINED CELL % 1.4 % (0.0-4.0); LYMPH # 1.5 K/mm3 (1.5-4.5); LYMPH % 15.7 % (24.0-44.0); MEAN CORPUSCULAR HEMOGLOBIN 23.6 pg (27.0-33.0); MEAN CORPUSCULAR HGB CONC 33.9 g/dl (32.0-36.5); MEAN CORPUSCULAR VOLUME 69.8 fl (80.0-96.0); MONO # 0.3 K/mm3 (0.0-0.8); NEUTROPHILS # 6.7 K/mm3 (1.8-7.7); NEUTROPHILS % 76.3 % (36.0-66.0); PLATELET COUNT, AUTOMATED 155 k/mm3 (150-450); WHITE BLOOD COUNT 8.8 K/mm3 (4.0-10.0)
[2017-03-27 06:03] LABS: ADD MORPHOLOGY? YES
[2017-03-27 06:10] LABS: ANION GAP 6 MEQ/L (8-16); BLOOD UREA NITROGEN 13 MG/DL (7-18); CALCIUM LEVEL 8.8 MG/DL (8.5-10.1); CARBON DIOXIDE LEVEL 29 MEQ/L (21-32); CHLORIDE LEVEL 104 MEQ/L (98-107); CREATININE FOR GFR 1.04 MG/DL (0.55-1.02); GLOMERULAR FILTRATION RATE > 60.0 (>51); GLUCOSE, FASTING 135 MG/DL (70-105); POTASSIUM SERUM 3.5 MEQ/L (3.5-5.1); SODIUM LEVEL 139 MEQ/L (136-145)
[2017-03-27 06:31] LABS: MICROCYTOSIS 2+
--- NOTE | 2017-03-27 08:29 | IPN ---
DATE: 03/27/2017 ADDENDUM: She did have a one-time culture positive for staphylococcus hominis. We did repeat cultures on her. She has remained afebrile. She has a normal white count. Will go ahead and discontinue her antibiotics as this is most likely contaminant.
--- NOTE | 2017-03-27 08:34 | IPN ---
DATE OF SERVICE: 03/27/2017 A 61-year-old female seen at bedside. No overnight issues reported. She is resting comfortably. She did not participate with physical therapy yesterday. We will see if she can do any better today. She informs me she has about 13 steps in her house that she would have to navigate. OBJECTIVE: Temperature is 96.9, pulse 100, respiratory rate 18, blood pressure (BP) 145/70, SPO2 93% on room air. General: The patient appears to be in no acute distress. She is alert, oriented, pleasant. HEENT: Unremarkable. Lungs: Clear. Heart: Regular rate and rhythm. Abdomen: Soft. Extremities: No edema. No calf tenderness. LABORATORY DATA: White count is 8.8, hemoglobin 9.8, platelets are 155,000. Sodium 139, potassium 3.5, chloride 104, bicarbonate 29, anion gap 6, BUN is 13, creatinine is 1.04, glucose 135. ASSESSMENT AND PLAN: 1. Unsteady gait. Findings on MRI, MRA, and CT findings suggest the possibility of an old cerebrovascular accident (CVA). No new findings. Her carotids were unremarkable for any significant stenosis. 2D echo did not show anything more significant than grade 1 diastolic dysfunction. However, there was some question of whether or not she had some ventricular trabeculations. I did discuss this with the residential door installer who read the echocardiogram, and felt that this is trivial at this point. She is established with Dr. Mayfield and will likely have her followup with him, as well. She has not demonstrated any findings on telemetry. No arrhythmias. No atrial fibrillation has been noted. However, due to her repeated episodes, it may be beneficial for her to have a loop recorder. Will see if we can make those arrangements, and she can followup with neurology as an outpatient. 2. Elevated sedimentation rate, which she is no longer having any other issues with headaches. She never had any amaurosis fugax. Will hold on any prednisone. Again, she does have a history of rheumatologic disorders and follows with rheumatology in [place]. 3. Lupus. Followup with rheumatology in [place]. 4. Diabetes. Continue fingersticks before meals and at bedtime with sliding scale coverage and consistent-carbohydrate diet. 5. Hyperlipidemia. Continue statin. 6. Prior history of cerebrovascular accident, as outlined above. Followup outpatient with neurology. 7. Coronary artery disease with stent placement in the past. Continue on aspirin, which I did increase to a full-dose aspirin, Lipitor, beta beth. 8. Deep venous thrombosis (DVT) prophylaxis. Subcutaneous heparin. DISPOSITION: Will see how she does with home safety evaluation and plan on discharge within the next 24 hours, and she will likely need to have a loop recorder by Dr. Mayfield's office, as well as followthrough Dr. Sharma's office outpatient.
[2017-03-27] MEDS: FLUTICASONE PROP 0.05% NASAL SPRAY 16 GM (FLONASE) SCH (09:04)
[2017-03-27] MEDS: MULTIVITAMINS CHILDREN'S CHEWABLE TABLET PO SCH (09:05)
[2017-03-27] MEDS: METOPROLOL SUCC *XL* 25MG TAB (TopROL *XL*) PO SCH (09:05)
[2017-03-27] MEDS: HumaLOG INSULIN (NovoLOG) PER UNIT SC SCH ×4 (09:05→21:00)
[2017-03-27] MEDS: SENOKOT S TAB PO SCH ×2 (09:05→22:45)
[2017-03-27] MEDS: ASPIRIN 325 MG TAB PO SCH (09:05)
[2017-03-27] MEDS: OMEPRAZOLE 20 MG CAP PO SCH (09:05)
[2017-03-27] MEDS: ASCORBIC ACID 500 MG TAB PO SCH (09:05)
[2017-03-27] MEDS: LORATADINE 10 MG TAB PO SCH (09:06)
[2017-03-27] MEDS: ALPRAZolam 0.25 MG TAB PO SCH (22:45)
[2017-03-27] MEDS: NORTRIPTYLINE 25 MG CAP PO SCH (22:45)
[2017-03-27] MEDS: SERTRALINE 100 MG TAB PO SCH (22:45)
[2017-03-27] MEDS: ATORVASTATIN 20 MG TAB PO SCH (22:45)
[2017-03-28] VITALS: PULSE 84
[2017-03-28 00:13] VITALS: BP 149/64
[2017-03-28 03:56] VITALS: BP 149/80
[2017-03-28 04:00] VITALS: PULSE 76
[2017-03-28] MEDS: HEPARIN SOD (PORCINE) 5000 UNITS/ML VIAL SQ SCH (05:26)
[2017-03-28] MEDS: SLF 3 ML SYR IV SCH (05:26)
[2017-03-28 05:35] LABS: BASO % 0.4 % (0.0-1.0); EOS # 0.4 K/mm3 (0.0-0.50); EOS % 4.6 % (0.0-3.0); LARGE UNSTAINED CELL # 0.1 K/mm3 (0.0-0.4); LARGE UNSTAINED CELL % 1.1 % (0.0-4.0); LYMPH # 1.9 K/mm3 (1.5-4.5); LYMPH % 21.5 % (24.0-44.0); MEAN CORPUSCULAR HEMOGLOBIN 23.7 pg (27.0-33.0); MEAN CORPUSCULAR HGB CONC 33.2 g/dl (32.0-36.5); MEAN CORPUSCULAR VOLUME 71.3 fl (80.0-96.0); MONO # 0.3 K/mm3 (0.0-0.8); NEUTROPHILS # 5.8 K/mm3 (1.8-7.7); NEUTROPHILS % 69.4 % (36.0-66.0); PLATELET COUNT, AUTOMATED 151 k/mm3 (150-450); WHITE BLOOD COUNT 8.3 K/mm3 (4.0-10.0)
[2017-03-28 05:57] LABS: ANION GAP 6 MEQ/L (8-16); BLOOD UREA NITROGEN 13 MG/DL (7-18); CALCIUM LEVEL 8.8 MG/DL (8.5-10.1); CARBON DIOXIDE LEVEL 29 MEQ/L (21-32); CHLORIDE LEVEL 105 MEQ/L (98-107); CREATININE FOR GFR 0.94 MG/DL (0.55-1.02); GLOMERULAR FILTRATION RATE > 60.0 (>51); GLUCOSE, FASTING 128 MG/DL (70-105); POTASSIUM SERUM 3.7 MEQ/L (3.5-5.1); SODIUM LEVEL 140 MEQ/L (136-145)
[2017-03-28 08:00] VITALS: BP 167/80
[2017-03-28] MEDS: HumaLOG INSULIN (NovoLOG) PER UNIT SC SCH (08:44)
[2017-03-28 08:45] VITALS: BP 167/80
[2017-03-28] MEDS: METOPROLOL SUCC *XL* 25MG TAB (TopROL *XL*) PO SCH (08:45)
[2017-03-28] MEDS: MULTIVITAMINS CHILDREN'S CHEWABLE TABLET PO SCH (08:45)
[2017-03-28] MEDS: SENOKOT S TAB PO SCH (08:45)
[2017-03-28] MEDS: OMEPRAZOLE 20 MG CAP PO SCH (08:45)
[2017-03-28] MEDS: ASCORBIC ACID 500 MG TAB PO SCH (08:45)
[2017-03-28] MEDS: LORATADINE 10 MG TAB PO SCH (08:45)
[2017-03-28] MEDS: ASPIRIN 325 MG TAB PO SCH (08:45)
[2017-03-28] MEDS: FLUTICASONE PROP 0.05% NASAL SPRAY 16 GM (FLONASE) SCH (10:25)
[2017-03-28] MEDS ORDERED: NORT25CA2 PO (10:29)
[2017-03-28] MEDS ORDERED: ASPI325T PO (10:29)
--- NOTE | 2017-03-28 11:09 | DSES ---
DATE OF ADMISSION: 03/23/2017 DATE OF DISCHARGE: ATTENDING PHYSICIAN: Dr. Myers PRIMARY CARE PROVIDER: Dr. Hudson Sinclair PRINCIPAL DIAGNOSIS: Unsteady gait with subacute and multiple chronic strokes on MRI scan. HISTORY: Rekha Yusuf is a 61-year-old with lupus, followed by [facility] in [place], who came in with unsteady gait. There was concern that she might have had a stroke. Details of the history and physical from admission. HOSPITAL COURSE: The patient was admitted to a progressive care unit (PCU) bed. She had extensive brain imaging with a MRI scan of the brain that showed enlargement of the ventricles, moderate degree of atrophy (only 61 years old) without acute infarction, mass or hemorrhage. CT of the brain showed old infarcts, posterior right parietal occipital and left occipital lobe. MRA of the brain showed diminutive of posterior circulation, basilar artery fed only by the right vertebral, persistent feta origin of the left posterior cerebral artery, otherwise unremarkable. Carotid MRI was done that showed no significant stenosis. Echocardiogram was essentially unremarkable. Ejection fraction 55 to 60%. Mild aortic insufficiency. Mild mitral insufficiency. The patient was seen by physical therapy (PT) and passed her home safety evaluation yesterday with recommendation for outpatient physical therapy. She was seen in consultation by Dr. Sharma from neurology, who recommended consideration of an outpatient cardiology workup for possible occult atrial fibrillation (the patient has been seen by Dr. Mayfield in the past). He recommended increasing aspirin to 325 mg daily, which was done. On the day of discharge, the patient is eager to go home. Her blood pressure is 167/80, pulse 90, respiration rate 19, 98% oxygen saturation. She has no jugular venous distention (JVD). Lungs are clear. Heart has regular rhythm. Abdomen is soft, nontender, no masses. No peripheral edema. Normal strength, reflexes, coordination, sensation on neurologic examination. LABORATORIES: White count 8.3, hemoglobin 9.5, which is stable, platelets 151. Sodium 140, potassium 3.7, BUN 13, creatinine 0.9, glucose 128. CHRISTINA was positive. She was previously diagnosed with lupus and I am not sure why we repeated this. Blood culture grew contaminant Staphylococcus hominis, three out of four blood cultures were negative. DISPOSITION: The patient is discharged home in improved and stable condition. She will followup with Dr. Hudson Sinclair in 1 week. He can refer her to Dr. Mayfield for consideration of implanted loop recorder to assess for occult atrial fibrillation. She is currently on antiplatelet medication with aspirin 325 mg daily; consideration for anticoagulant will depend on the results of the implanted loop recorder. Dr. Sharma would like to see her sometime in the future as well, probably within a month. MEDICATIONS ON DISCHARGE: Will continue to be: - alprazolam 0.25 mg at night - vitamin C 500 mg daily - atorvastatin 20 mg daily - Lisinopril 10 mg daily - metoprolol ER 25 mg daily - naproxen 500 mg twice a day as needed - omeprazole 40 mg daily - sertraline 100 mg daily - tizanidine 4 mg three times a day as needed The only new medications are: - aspirin 325 mg at night - nortriptyline 25 mg at bedtime - Lisinopril 10 mg daily at home that she has not been taking here but I am restarting this for her blood pressure and renal protection Staff is requesting a rolling walker, which will be sent to her pharmacy as well. At the time of this dictation, no pending laboratories.
[2017-03-31 00:06] LABS: APTT 40.9 sec (.); Anticardiolipin Ab, IgA <10 APL (.); COMPLEMENT TOTAL (CH50) > 65 U/mL (42-60); DRVTT Confirm Seconds 37.4 sec (.); DRVTT Ratio 1.4 ratio (.); DRVTT Screen Seconds 56.3 sec (.); HEMOGLOBIN A 64.5 % (94.0-98.0); HEMOGLOBIN C 32.4 % (0.0)
== END 2017-03-28 12:42 | disposition home or self-care (01) | DRG 93 ==
LOC: M ED 16:54 → M ED INP 23:42 → M PCU 03-24 14:15
PROVIDERS: ADMIT Internal Medicine; ATTEND Family Medicine
DX: R26.81 Unsteadiness on feet (principal); Z86.73 Personal history of transient ischemic attack (TIA), and cerebral infarction without residual deficits; Z79.899 Other long term (current) drug therapy; R19.7 Diarrhea, unspecified; R11.2 Nausea with vomiting, unspecified; E11.9 Type 2 diabetes mellitus without complications; I10 Essential (primary) hypertension; I25.10 Atherosclerotic heart disease of native coronary artery without angina pectoris; R42 Dizziness and giddiness; M19.90 Unspecified osteoarthritis, unspecified site; K21.9 Gastro-esophageal reflux disease without esophagitis; F41.9 Anxiety disorder, unspecified; F32.9 Major depressive disorder, single episode, unspecified; E78.5 Hyperlipidemia, unspecified; Z79.82 Long term (current) use of aspirin; K58.9 Irritable bowel syndrome, unspecified; I25.2 Old myocardial infarction; Z87.891 Personal history of nicotine dependence; D64.9 Anemia, unspecified; I48.91 Unspecified atrial fibrillation

== ENCOUNTER → 2017-04-04 | Outpatient (REF) | payer MEDICAID, MEDICARE, OTHER ==
[~2017-04-04] MED LIST: ACET300T2 PO; ALPR0.25 PO; ASPI325T PO; ATOR1TAB21 PO; ATOR80TA59 PO; AZAT50TA2 PO; CHLO25TA PO; DIPH25CA PO; LISI-542; LISI-542 PO; LISI10TA4 PO; MECL12.575 PO; METF500T4 PO; METO1TAB32 PO; NAPR500T3 PO; NORT25CA2 PO; OMEP40CA2 PO; PROP10TAB PO; SERT-138 PO; TIZA4CAP3 PO; VITA200016 PO; VITA500C10 PO; VITACHTA PO
== END ==
LOC: M SFHCPLAZ 12:41
PROVIDERS: ATTEND Family Medicine
DX: R30.0 Dysuria (principal)

== ENCOUNTER 2017-04-16 11:44 | Inpatient (IN) | payer MEDICARE, MEDICAID ==
[~2017-04-16] VITALS: Ht 170.2 cm; Wt 78.7 kg
[~2017-04-16 11:44] MED LIST changes: -ATOR80TA59 PO; -CHLO25TA PO; -DIPH25CA PO; -LISI-542 PO; -MECL12.575 PO; -PROP10TAB PO; -VITA200016 PO
[2017-04-16] MEDS ORDERED: VITA200016 PO (12:04)
[2017-04-16] MEDS ORDERED: MECLIZINE 25 MG TABLET PO ONE (12:45)
[2017-04-16] MEDS ORDERED: ONDANSETRON 4MG/2ML VIAL (J2405) IV ONE (12:45)
[2017-04-16 12:53] LABS: BASO % 0.5 % (0.0-1.0); EOS # 0.2 K/mm3 (0.0-0.50); EOS % 2.4 % (0.0-3.0); LARGE UNSTAINED CELL # 0.1 K/mm3 (0.0-0.4); LARGE UNSTAINED CELL % 1.5 % (0.0-4.0); LYMPH # 1.6 K/mm3 (1.5-4.5); LYMPH % 18.6 % (24.0-44.0); MEAN CORPUSCULAR HEMOGLOBIN 23.8 pg (27.0-33.0); MEAN CORPUSCULAR HGB CONC 34.2 g/dl (32.0-36.5); MEAN CORPUSCULAR VOLUME 69.7 fl (80.0-96.0); MONO # 0.2 K/mm3 (0.0-0.8); MONO % 2.5 % (0.0-5.0); NEUTROPHILS # 6.5 K/mm3 (1.8-7.7); NEUTROPHILS % 74.6 % (36.0-66.0); PLATELET COUNT, AUTOMATED 176 k/mm3 (150-450); RED CELL DISTRIBUTION WIDTH 14.3 % (11.5-14.5); WHITE BLOOD COUNT 8.7 K/mm3 (4.0-10.0)
[2017-04-16 13:00] LABS: CALCIUM LEVEL 10.3 MG/DL (8.5-10.1); CREATININE FOR GFR 1.35 MG/DL (0.55-1.02); GLOMERULAR FILTRATION RATE 51.8 (>51); POTASSIUM SERUM 3.8 MEQ/L (3.5-5.1)
[2017-04-16 13:56] LABS: ERYTHROCYTE SEDIMENTATION RATE 52 mm/hr (0-30)
--- NOTE | 2017-04-16 14:26 | REP ---
Clinical: Headaches and extremity weakness. Technique: Standard noncontrast MRI of the brain sequencing. Comparison: 03/24/2017. Findings: Mild atrophy along with periventricular leukomalacia and microvascular ischemic changes are again appreciated and stable. Evidence for small old bilateral posterior parietal infarctions with elements of encephalomalacia are unchanged. Mccollum-white differentiation is maintained. No new, acute, significant signal abnormalities are appreciated to suggest acute infarction, hemorrhage, or mass. No mass effect. No extra-axial collection. Midbrain and midline structures are relatively symmetric and normal. Posterior fossa appears normal. Orbits and sinuses are symmetric and normal. Impression: 1. Evidence for mild atrophy and chronic microvascular ischemic changes including small old posterior parietal infarctions. 2. No evidence for acute intracranial process. Signed by Jose Daniel Whittaker MD 04/16/2017 02:18 P
[2017-04-16] MEDS ORDERED: CHLO25TA PO (16:23)
[2017-04-16] MEDS ORDERED: ASPI325T PO (16:23)
[2017-04-16] MEDS ORDERED: DIPH25CA PO (16:23)
[2017-04-16] MEDS ORDERED: LISI-542 PO (16:23)
[2017-04-16] MEDS ORDERED: ATOR80TA59 PO (16:23)
[2017-04-16] MEDS ORDERED: NORT25CA2 PO (16:23)
[2017-04-16] MEDS ORDERED: tiZANidine 4 MG TAB PO PRN (17:45)
[2017-04-16] MEDS ORDERED: GLUCOSE 4 GM CHEW TABLET PO PRN (18:15)
[2017-04-16] MEDS ORDERED: DEXTROSE 50% 50 ML SYRINGE IV PRN (18:15)
[2017-04-16] MEDS ORDERED: GLUCAGON FOR INJ 1 MG VIAL (J1610) SC PRN (18:15)
[2017-04-16 18:30] VITALS: BP 136/79
[2017-04-16] MEDS ORDERED: ONDANSETRON 4 MG TAB (S0181) PO PRN (18:30)
[2017-04-16] MEDS: ASCORBIC ACID 500 MG TAB PO SCH (18:31)
[2017-04-16] MEDS: NS 1,000 ML IV SCH (18:31)
[2017-04-16] MEDS: ASPIRIN 325 MG TAB PO SCH (18:31)
--- NOTE | 2017-04-16 19:29 | HPEPDOC ---
General Date of Admission 04/16/17 Primary Care Physician: ANJALI HOWARD MD Attending Physician: CORTES GREENE MD Chief Complaint The patient is a 61-year-old female admitted with a reason for visit of Dizziness. History of Present Illness 61-year-old female with past medical history coronary artery disease with 3 MIs and LAD stent, incidental CVAs on imaging, lupus, NIDDM2, hypertension, hyperlipidemia presents to ED with her daughter after feeling loss of balance as if she is going to pass out when she was walking in her house. Associated symptoms include nausea, vomiting 4-5 times, a frontal headache, and feeling short of breath with cold sweats. She states she feels dizzy mostly when she is walking around. Patient also experienced a bout of watery diarrhea a few days ago after eating shrimp. Patient denies blacking out, loss of consciousness, or feeling as if room is spinning. Patient and her daughter deny slurred speech, facial droop, and loss of bowel or bladder function during this episode. She denies recent travel or sick contacts, but medications were changed about 2 weeks ago by her PCP: Metoprolol decreased from 50mg to 25mg, lisinopril started at 5 mg, and chlorthalidone 25 mg added for uncontrolled bp in the 190/ 90s range. In the ED, pt was given Meclizine & Zofran, after which she states she feels better and no longer experiencing dizziness. Brain MRI was negative for acute processes and showed old posterior parietal infarcts. Patient was recently admitted 03/23/17 for similar symptoms. Home Medications Scheduled Ascorbic Acid (Vitamin C 500 mg) 1 Chw Chw, 500 MG PO DAILY, (Reported) Aspirin (Aspirin) 325 Mg Tab, 325 MG PO DAILY, (Reported) Atorvastatin Calcium (Atorvastatin Calcium) 80 Mg Tab, 80 MG PO QHS, (Reported) Chlorthalidone (Chlorthalidone) 25 Mg Tab, 25 MG PO DAILY, (Reported) Lisinopril (Lisinopril) 5 Mg Tab, 5 MG PO DAILY, (Reported) Metoprolol Succinate (Metoprolol Succinate ER) 25 Mg Tab, 25 MG PO DAILY, ( Reported) Multivitamins Chewable *[facility] STOCKED* (Animal Shapes with C & FA *[facility] STOCKED*) 1 Tab Chew, 1 TAB PO DAILY, (Reported) Nortriptyline HCl (Nortriptyline HCl) 25 Mg Cap, 25 MG PO QHS, (Reported) Omeprazole (Omeprazole) 40 Mg Cap, 40 MG PO DAILY, (Reported) Sertraline HCl (Sertraline HCl) 100 Mg Tab, 100 MG PO QHS, (Reported) Vitamin D (Vitamin D) 2,000 Unit Cap, 2,000 UNIT PO DAILY, (Reported) Scheduled PRN Alprazolam (Alprazolam) 0.25 Mg Tab, 0.25 MG PO QHS PRN for ANXIETY, (Reported) Diphenhydramine HCl (Diphenhydramine HCl) 25 Mg Cap, 50 MG PO QHS PRN for ALLERGIES, (Reported) Tizanidine Hydrochloride (Tizanidine HCl) 4 Mg Cap, 4 MG PO TID PRN for MUSCLE SPASMS, (Reported) Allergies Coded Allergies: SEASONAL ALLERGIES (Verified Allergy, Mild, 03/23/17) Past Medical History Medical History NIDDM2 CAD, 3 MIs, stent in LAD in 2009 Incidental CVAs on imaging Lupus Hypertension Hyperlipidemia Osteoarthritis Depression/anxiety GERD Irritable Bowel Syndrome Surgical History LAD stent placed in 2009 MARVIN-BSO Tonsillectomy Cholecystectomy Rt knee meniscus repair Review of Symptoms Constitutional: Denies: Chills, Fever, Night Sweats, Weight Loss Eyes: Denies: Vision change ENT: Reports: Head Aches (frontal headache), Denies: Dysphagia Pulmonary: Reports: Other Symptoms (was diaphortic-short of breath and cold sweats-during morning dizziness episode), Denies: Cough Cardiovascular: Reports: Lt Headedness (and dizziness ), Denies: Chest Pain, Edema Gastrointestinal: Reports: Nausea, Vomiting (3 episodes of non-bloody vomit this morning), Diarrhea (about 4-5 days ago. Watery, nonbloody), Denies: Abdominal Pain, Melena, Hematochezia Genitourinary: Denies: Hematuria Neurological: Denies: Weakness, Numbness, Incoordination, Change in speech, Confusion, Seizures, Other Symptoms (no loss of body movement/sensations) Psych: Reports: Mood Normal Physical Examination General Exam: Positive: Alert, Cooperative, No Acute Distress Eye Exam: Positive: PERRLA, Conjunctiva & lids normal, EOMI, Negative: Ptosis ENT Exam: Positive: Atraumatic, Pharynx Normal, Tongue Midline Neck Exam: Positive: Supple, Negative: Lymphadenopathy Chest Exam: Positive: Clear to auscultation, Normal air movement, Negative: Rales, Rhonchi, Wheezing Heart Exam: Positive: Rate Normal, Regular Rhythm Abdomen Exam: Positive: Normal bowel sounds, Soft, Negative: Tenderness Extremity Exam: Positive: Normal pulses, Negative: Cyanosis, Edema, Tenderness, Swelling Skin Exam: Positive: Nl turgor and temperature Neuro Exam: Positive: Normal Speech, Strength at 5/5 X4 ext, Normal Tone, Sensation Intact, Cranial Nerves 3-12 NL, Other Psych Exam: Positive: Mental status NL, Mood NL, Oriented x 3 Vital Signs Vital Signs Date Time Temp Pulse Resp B/P (MAP) Pulse Ox O2 Delivery O2 Flow Rate FiO2 04/16/17 14:49 Room Air 04/16/17 14:44 130/66 (87) 04/16/17 14:25 97.9 04/16/17 12:09 93 18 99 Height (in): 67 Weight (kg): 75 BMI (kg): 25.9 Laboratory Data Labs 24H Laboratory Tests 2 04/16/17 12:21: White Blood Count 8.7, Red Blood Count 4.80, Hemoglobin 11.4L, Hematocrit 33.4L , Mean Corpuscular Volume 69.7L, Mean Corpuscular Hemoglobin 23.8L, Mean Corpuscular Hemoglobin Concent 34.2, Red Cell Distribution Width 14.3, Platelet Count 176, Neutrophils (%) (Auto) 74.6H, Lymphocytes (%) (Auto) 18.6L, Monocytes (%) (Auto) 2.5, Eosinophils (%) (Auto) 2.4, Basophils (%) (Auto) 0.5, Neutrophils # (Auto) 6.5, Lymphocytes # (Auto) 1.6, Monocytes # (Auto) 0.2, Eosinophils # (Auto) 0.2, Basophils # (Auto) 0.0, Large Unclassified Cells % 1.5 , Large Unclassified Cells # 0.1, Erythrocyte Sedimentation Rate 52H, Anion Gap 12, Glomerular Filtration Rate 51.8, Blood Urea Nitrogen 21H, Creatinine 1.35H, Sodium Level 139, Potassium Level 3.8, Chloride Level 101, Carbon Dioxide Level 26, Calcium Level 10.3H, C-Reactive Protein, Quantitative 3.07H CBC/BMP Laboratory Tests 04/16/17 12:21 Red Blood Count 4.80, Mean Corpuscular Volume 69.7 L, Mean Corpuscular Hemoglobin 23.8 L, Mean Corpuscular Hemoglobin Concent 34.2, Red Cell Distribution Width 14.3, Neutrophils (%) (Auto) 74.6 H, Lymphocytes (%) (Auto) 18.6 L, Monocytes (%) (Auto) 2.5, Eosinophils (%) (Auto) 2.4, Basophils (%) ( Auto) 0.5, Neutrophils # (Auto) 6.5, Lymphocytes # (Auto) 1.6, Monocytes # (Auto ) 0.2, Eosinophils # (Auto) 0.2, Basophils # (Auto) 0.0, Calcium Level 10.3 H Assessment/Plan Near-syncope, lightheadedness 2/2 orthostatic hypotension -Patient is volume depleted from possible gastroenteritis, as she had a bout of diarrhea a few days ago and multiple episodes of vomiting this morning. Elevated BUN/Cr also point towards dehydration, all contributing to orthostatic hypotension as the etiology of her dizziness. Pt is only symptomatic when walking around, and asymptomatic when shifting in bed, thus BPPV is unlikely. -brain MRI in showed no acute process -orthostatic vitals q8h -hydrate with 100cc/hr NS fluid -PT consulted. Appreciate their assistance Acute Kidney Injury -elevated BUN/Cr on admission likely due to dehydration -IV fluids History of CVA -brain MRI in ED showed small old posterior parietal infarctions. Pt was previously diagnosed with 3 minor asymptomatic strokes found incidentally on imaging. No slurred speech, vision changes, facial droop, motor/sensory deficits. Monitor. -continue home Aspirin 325mg CAD -Continue Aspirin 325. Metoprolol on hold as it may be contributing to patient' s dizziness. May restart once symptoms resolve. Lupus -Continue Tizanidine Dyslipidemia -continue Statin HTN -Hold Lisinopril & Chlorthalidone due to patient's JOEY and symptoms of dizziness and lightheadedness. May restart once JOEY resolves -Blood pressure currently in ideal range Diabetes -Patient is diabetic according to A1c of 7.3 as from November 2016. However patient 's current med list does not include any diabetes medication, but patient stated she is a diabetic and has peripheral neuropathy for which she takes Gabapentin, which is also not on her medication list -Will recheck A1c -On ISS Anxiety -continue Xanax and Zoloft GERD -continue Omeprazole Allergic Rhinitis -Hold Diphenhydramine as it may be contributing to patient's dizziness. May restart once symptoms resolve. KAMINI -pt states she was officially diagnosed with KAMINI, but has not yet obtained CPAP machine -placed on KAMINI protocol DVT ppx -Heparin 5,000 sc DISPOSITION: Admit to PCU for telemetry monitoring to Dr. Greene's service Plan / VTE VTE Prophylaxis Ordered?: Yes (Heparin 5000 sc) GME ATTESTATION GME ATTESTATION My preceptor for this patient encounter was physically present in the building during the encounter and was fully available. As needed, all aspects of the patient interview, examination, medical decision making process, and medical care plan development were reviewed and approved by the preceptor. Preceptor is aware and concurs with the plan as stated in the body of this note and will attest to such by his/her cosignature. EDD GOODSON DO Apr 16, 2017 16:30
[2017-04-16 20:00] VITALS: BP_SYST 136; BP_SYST 138; BP_DIAS 76; BP_DIAS 79
[2017-04-16 20:03] VITALS: BP 136/68
[2017-04-16 20:06] VITALS: BP 128/56
[2017-04-16] MEDS: HumaLOG INSULIN (NovoLOG) PER UNIT SC SCH (21:00)
[2017-04-16] MEDS: SENOKOT S TAB PO SCH (21:29)
[2017-04-16] MEDS: SERTRALINE 100 MG TAB PO SCH (21:29)
[2017-04-16] MEDS: ATORVASTATIN 20 MG TAB PO SCH (21:29)
[2017-04-16] MEDS: NORTRIPTYLINE 25 MG CAP PO SCH (21:29)
[2017-04-16] MEDS: HEPARIN SOD (PORCINE) 5000 UNITS/ML VIAL SC SCH (21:30)
[2017-04-16] MEDS ORDERED: MAG SULF 1GM/100ML (MAG RUN) 1 GM in APPROPRIATE DILUENT 1 EA IV ONE (22:45)
[2017-04-17] VITALS (8 sets, daily range): BP systolic 95–140; BP diastolic 52–87
[2017-04-17 05:05] LABS: MEAN CORPUSCULAR HEMOGLOBIN 23.5 pg (27.0-33.0); MEAN CORPUSCULAR HGB CONC 33.3 g/dl (32.0-36.5); MEAN CORPUSCULAR VOLUME 70.5 fl (80.0-96.0); RED CELL DISTRIBUTION WIDTH 14.4 % (11.5-14.5)
[2017-04-17] MEDS: NS 1,000 ML IV SCH ×2 (05:11→13:22)
[2017-04-17] MEDS: HEPARIN SOD (PORCINE) 5000 UNITS/ML VIAL SC SCH ×3 (05:13→21:40)
[2017-04-17] MEDS: ACETAMINOPHEN TAB 650MG DOSE (2X325MG) PO PRN ×2 (05:14→21:42)
[2017-04-17 05:21] LABS: ANION GAP 10 MEQ/L (8-16); BLOOD UREA NITROGEN 23 MG/DL (7-18); CARBON DIOXIDE LEVEL 26 MEQ/L (21-32); CHLORIDE LEVEL 103 MEQ/L (98-107); CREATININE FOR GFR 1.15 MG/DL (0.55-1.02); GLOMERULAR FILTRATION RATE > 60.0 (>51); GLUCOSE, FASTING 158 MG/DL (70-105); MAGNESIUM LEVEL 2.1 MG/DL (1.8-2.4); POTASSIUM SERUM 3.6 MEQ/L (3.5-5.1); SODIUM LEVEL 139 MEQ/L (136-145)
--- NOTE | 2017-04-17 07:33 | ECGEPIP ---
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
[2017-04-17] MEDS: MULTIVITAMINS CHILDREN'S CHEWABLE TABLET PO SCH (08:06)
[2017-04-17] MEDS: ASPIRIN 325 MG TAB PO SCH (08:06)
[2017-04-17] MEDS: ASCORBIC ACID 500 MG TAB PO SCH (08:06)
[2017-04-17] MEDS: OMEPRAZOLE 20 MG CAP PO SCH (08:06)
[2017-04-17] MEDS: SENOKOT S TAB PO SCH ×2 (08:06→21:41)
[2017-04-17] MEDS: VITAMIN D 1,000 INTERNATIONAL UNITS TABLET PO SCH (08:06)
[2017-04-17] MEDS: HumaLOG INSULIN (NovoLOG) PER UNIT SC SCH ×4 (08:07→21:00)
[2017-04-17] MEDS ORDERED: NS 1,000 ML IV ONE (08:15)
[2017-04-17 10:54] LABS: FREE T4 1.21 NG/DL (0.76-1.46)
[2017-04-17] MEDS ORDERED: KCL 10MEQ IN 100ML SWI (KRUN) 10 MEQ in APPROPRIATE DILUENT 1 EA IV ONE ×2 (11:00)
[2017-04-17] MEDS ORDERED: POTASSIUM CHLORIDE 10 MEQ SR TABLET PO ONE (11:00)
--- NOTE | 2017-04-17 16:33 | IPN ---
DATE: 04/17/2017 The patient is seen and examined at the bedside. Chart has been reviewed. The patient denies any repeat episodes of diarrhea overnight. She still complains of occasional dizziness and lightheadedness. The patient has been given intravenous fluid. Throughout the evening, she was noted to have multiple premature ventricular contractions (PVCs) on telemetry. Potassium and magnesium were replaced. VITAL SIGNS: Temperature 97.3, pulse 88, respiratory rate 18, blood pressure is 95/54, 98% on room air. GENERAL: Awake, alert and oriented to person, place and time, answering questions appropriately. No use of respiratory accessory muscle. HEENT: Anicteric sclerae. No jaundice. Pupils are round and reactive to light and accommodation. Extraocular muscles are intact. Normocephalic, atraumatic. LUNGS: Diminished, clear to auscultation. No wheezing, rales, or rhonchi. HEART: S1, S2, sinus rhythm. ABDOMEN: Soft, nontender, nondistended. Positive bowel sounds times four quadrants. No rebound or guarding. EXTREMITIES: No clubbing or cyanosis. SKIN: Warm, dry, well-perfused. LABORATORY DATA: White count 8, hemoglobin 10, hematocrit 30, platelet count 137. Sodium 139, potassium 3.8, chloride 101, bicarbonate 26, BUN 21, creatinine 1.35 improved to a creatinine of 1.15 this morning, magnesium 2.1, potassium 3.6. Two sets of blood cultures are negative. MRI of the brain shows evidence of mild atrophy and microvascular ischemic changes including small old posterior parietal infarct. No evidence of acute intracranial process. ASSESSMENT AND PLAN: This is a 61-year-old female with a history of coronary artery disease (CAD), three myocardial infarctions (MIs), left anterior descending (LAD) stent, incidental cerebrovascular accidents (CVAs) on imaging, lupus, eii-giuogub-gstmtqoot type two diabetes, hypertension, and hyperlipidemia who presents to the emergency room with complaints of dizziness and loosing her balance at home. The patient had been having nausea and vomiting with frontal headache, short of breath with cold sweats and one episode of diarrhea the day before presentation. She denied any slurring of speech, facial drooping, or any upper or lower extremity paresthesias. The patient's medications were changed recently. Her metoprolol was decreased from 50 mg to 25 mg, lisinopril was started at 5 mg, and chlorthalidone was added due to uncontrolled blood pressure of 190 systolic. In the emergency room despite Zofran and meclizine, the patient evaluated on telemetry and MRI showed no acute intracranial process aside for known history of CVA. She was continued on aspirin overnight. CURRENT ISSUES: 1. Ataxia, history of multiple cerebrovascular accidents (CVAs). Negative MRI currently with no new acute finding. She is continued on aspirin and telemetry monitoring. Orthostasis was checked and IV fluids have been given. Continue to hold her blood pressure medications due to low blood pressure on orthostasis for now. 2. Abnormal thyroid-stimulating hormone (TSH). Obtain T4 and T3. Rule out hyperthyroidism and thyroid storm. Obtain an iodine scan in the morning. 3. Hypertension. Currently with low blood pressure. Therefore, we will hold the patient's chlorthalidone, lisinopril, and metoprolol. Continue on IV fluids for now. 4. History of CVA. Continue on aspirin. 5. Hyperlipidemia. Continue on statin. 6. Reflux. Continue on omeprazole. 7. Depression. Continue on sertraline. 8. Vitamin D deficiency. Continue on vitamin D. 9. Iuq-ipbbjth-ewgbfpfim diabetes. Continue on sliding scale with hypoglycemic protocol. 10. History of lupus. Outpatient followup with her primary care provider. 11. Deep vein thrombosis (DVT) prophylaxis with compression stockings.
[2017-04-17] MEDS: ALPRAZolam 0.25 MG TAB PO PRN (21:40)
[2017-04-17] MEDS: NORTRIPTYLINE 25 MG CAP PO SCH (21:41)
[2017-04-17] MEDS: ATORVASTATIN 20 MG TAB PO SCH (21:41)
[2017-04-17] MEDS: SERTRALINE 100 MG TAB PO SCH (21:41)
[2017-04-18] VITALS (7 sets, daily range): BP systolic 110–147; BP diastolic 58–88
[2017-04-18 05:12] LABS: MEAN CORPUSCULAR HEMOGLOBIN 23.5 pg (27.0-33.0); MEAN CORPUSCULAR HGB CONC 32.9 g/dl (32.0-36.5); MEAN CORPUSCULAR VOLUME 71.2 fl (80.0-96.0); RED CELL DISTRIBUTION WIDTH 14.4 % (11.5-14.5); WHITE BLOOD COUNT 6.8 K/mm3 (4.0-10.0)
[2017-04-18] MEDS: HEPARIN SOD (PORCINE) 5000 UNITS/ML VIAL SC SCH ×3 (05:20→21:32)
[2017-04-18 05:22] LABS: ANION GAP 5 MEQ/L (8-16); BLOOD UREA NITROGEN 17 MG/DL (7-18); CARBON DIOXIDE LEVEL 28 MEQ/L (21-32); CHLORIDE LEVEL 106 MEQ/L (98-107); CREATININE FOR GFR 1.13 MG/DL (0.55-1.02); GLOMERULAR FILTRATION RATE > 60.0 (>51); GLUCOSE, FASTING 149 MG/DL (70-105); MAGNESIUM LEVEL 2.1 MG/DL (1.8-2.4); POTASSIUM SERUM 4.5 MEQ/L (3.5-5.1); SODIUM LEVEL 139 MEQ/L (136-145)
[2017-04-18] MEDS: HumaLOG INSULIN (NovoLOG) PER UNIT SC SCH ×4 (08:09→21:00)
[2017-04-18] MEDS: ASPIRIN 325 MG TAB PO SCH (08:11)
[2017-04-18] MEDS: SENOKOT S TAB PO SCH ×2 (08:11→21:31)
[2017-04-18] MEDS: ASCORBIC ACID 500 MG TAB PO SCH (08:11)
[2017-04-18] MEDS: VITAMIN D 1,000 INTERNATIONAL UNITS TABLET PO SCH (08:11)
[2017-04-18] MEDS: MULTIVITAMINS CHILDREN'S CHEWABLE TABLET PO SCH (08:12)
[2017-04-18] MEDS: ACETAMINOPHEN TAB 650MG DOSE (2X325MG) PO PRN ×2 (08:12→21:31)
[2017-04-18] MEDS: OMEPRAZOLE 20 MG CAP PO SCH (08:12)
[2017-04-18] MEDS ORDERED: INFLUENZA QUADRIVALENT PF VACCINE 0.5ML SYRINGE (90686) IM ONE (09:00)
--- NOTE | 2017-04-18 14:52 | IPN ---
DATE OF SERVICE: 04/18/2017 The patient is seen and examined at the bedside. Chart has been reviewed. This morning, the patient continues to complain of generalized weakness, walking with a walker. She has not been noted to have subsequent premature ventricular contractions (PVCs) on telemetry. She denies any chest pain, pressure, tightness, shortness of breath but complains of occasional lightheadedness. The patient has been given intravenous fluids for the past 2 days with a total of about 2.8 liters yesterday and 240 mL today. The patient does not appear to be orthostatic. Continues to have occasional diarrhea, somewhat of a formed stool today, and no profuse watery discharge. The patient's creatinine is improved from admission of 1.3 to current 1.1. VITAL SIGNS: Temperature 97.2, pulse 91, respiratory rate 18, blood pressure 110/62, 98% on room air. Generally, the patient is awake, alert, oriented times three, answering questions appropriately. No cyanosis. No icterus. No jaundice. Lungs are clear to auscultation. No wheezing, rales, or rhonchi. Heart: S1, S2, sinus rhythm. Abdomen: Soft, nontender, nondistended. Positive bowel sounds. Extremities: No cyanosis, clubbing, or pitting edema. LABORATORY DATA: White count 6.8, hemoglobin 9.5, hematocrit 28, platelet count 135. Sodium 139, potassium 4.5, chloride 106, bicarbonate 28, BUN 17, creatinine 1.13 , glucose of 149. Thyroglobulin antibodies 15.7. TSH is 0.285. MRI of the brain: No acute intracranial pathology. Mild atrophy and chronic microvascular ischemic changes including small old posterior parietal infarction. ASSESSMENT AND PLAN: This is a 61-year-old female with a history of coronary artery disease (CAD), myocardial infarction ([place]), left anterior descending stent , incidental cerebrovascular accidents (CVAs) on imaging, lupus, sjm-obsqycv-psmqjbpgt type 2 diabetes, hypertension, hyperlipidemia, who presents to the emergency room (ER) with complaints of dizziness and loose bowel, and ataxia at home with nausea, vomiting, frontal headache, shortness of breath, cold sweats, and episodes of diarrhea the day before presentation. The patient denied any slurring of speech, facial drooping, or upper or lower extremity paresthesias. The patient's medications were changed recently. Decreased metoprolol from 50 mg to 25 mg, lisinopril started at 5 mg, and chlorthalidone was added due to uncontrolled blood pressure, systolic pressure of 190 despite Zofran and meclizine, the patient continued to have ataxia, difficulty ambulating. MRI of the brain showed no acute intracranial pathology. Telemetry was unremarkable aside from occasional PVCs for which magnesium and potassium were given for supplementation. The patient was found to have low thyroid-stimulating hormone (TSH) with free T4 and T3 being evaluated, which were normal, most likely subclinical hyperthyroidism. The patient does have a history of lupus and has been having on-and-off diarrhea for the past few weeks. CURRENT ISSUES: 1. Ataxia with history of multiple cerebrovascular accidents (CVAs). Negative MRI currently with no new acute finding. She is continued on aspirin. Telemetry was unremarkable with no signs of arrhythmias. Therefore, the patient may be transferred to medical-surgical floor. The patient has been given adequate intravenous fluids and no signs of orthostasis. 2. Subclinical hyperthyroidism with low TSH but normal T4 and T3. To monitor repeat numbers at a later time. Await iodine uptake scan. 3. Hypertension. Currently with low blood pressure. The patient's chlorthalidone, lisinopril, and metoprolol have been held. Intravenous (IV) fluids have been given. 4. History of cerebrovascular accident (CVA). On chronic aspirin. No new signs of CVA on repeat MRI of the brain. 5. Hyperlipidemia. On statin. 6. Reflux. On Protonix. 7. Depression. On sertraline. 8. Diarrhea. Gastrointestinal (GI) panel was negative. 9. Vitamin D deficiency. Continue on vitamin D. 10. Ppn-ovtsqlk-gefuhmmei diabetes. On sliding scale with hypoglycemic protocol. Consistent-carbohydrate diet. 11. History of lupus. No exacerbation at the moment. If the patient develops severe abdominal pain, may need to consider checking for lupus exacerbation with complement levels and sedimentation rate. 12. Deep vein thrombosis (DVT) prophylaxis with compression stockings. DISPOSITION: Await physical therapy (PT) clearance prior to discharge home. [facility]
[2017-04-18] MEDS: SERTRALINE 100 MG TAB PO SCH (21:31)
[2017-04-18] MEDS: NORTRIPTYLINE 25 MG CAP PO SCH (21:31)
[2017-04-18] MEDS: ALPRAZolam 0.25 MG TAB PO PRN (21:31)
[2017-04-18] MEDS: ATORVASTATIN 20 MG TAB PO SCH (21:31)
[2017-04-19] MEDS: HEPARIN SOD (PORCINE) 5000 UNITS/ML VIAL SC SCH ×3 (05:43→21:36)
[2017-04-19 05:46] VITALS: BP_SYST 130; BP_SYST 136; BP_SYST 155; BP_DIAS 74; BP_DIAS 75; BP_DIAS 77
[2017-04-19 05:47] LABS: MEAN CORPUSCULAR HGB CONC 33.8 g/dl (32.0-36.5); MEAN CORPUSCULAR VOLUME 71.1 fl (80.0-96.0); RED CELL DISTRIBUTION WIDTH 14.4 % (11.5-14.5); WHITE BLOOD COUNT 6.6 K/mm3 (4.0-10.0)
[2017-04-19 05:53] VITALS: BP 155/74
[2017-04-19 05:56] LABS: ANION GAP 6 MEQ/L (8-16); BLOOD UREA NITROGEN 12 MG/DL (7-18); CALCIUM LEVEL 9.2 MG/DL (8.5-10.1); CARBON DIOXIDE LEVEL 29 MEQ/L (21-32); CHLORIDE LEVEL 107 MEQ/L (98-107); CREATININE FOR GFR 1.18 MG/DL (0.55-1.02); GLOMERULAR FILTRATION RATE > 60.0 (>51); GLUCOSE, FASTING 129 MG/DL (70-105); MAGNESIUM LEVEL 1.8 MG/DL (1.8-2.4); POTASSIUM SERUM 4.5 MEQ/L (3.5-5.1); SODIUM LEVEL 142 MEQ/L (136-145)
[2017-04-19 06:31] LABS: COMPLEMENT C4 27.2 MG/DL (10-40)
[2017-04-19] MEDS: HumaLOG INSULIN (NovoLOG) PER UNIT SC SCH ×4 (07:30→20:22)
[2017-04-19 08:00] VITALS: BP 114/66
[2017-04-19] MEDS: VITAMIN D 1,000 INTERNATIONAL UNITS TABLET PO SCH (10:05)
[2017-04-19] MEDS: MULTIVITAMINS CHILDREN'S CHEWABLE TABLET PO SCH (10:05)
[2017-04-19] MEDS: OMEPRAZOLE 20 MG CAP PO SCH (10:05)
[2017-04-19] MEDS: SENOKOT S TAB PO SCH ×2 (10:06→20:32)
[2017-04-19] MEDS: ASPIRIN 325 MG TAB PO SCH (10:06)
[2017-04-19] MEDS: ASCORBIC ACID 500 MG TAB PO SCH (10:06)
[2017-04-19] MEDS: ACETAMINOPHEN TAB 650MG DOSE (2X325MG) PO PRN (10:06)
[2017-04-19] MEDS ORDERED: MECLIZINE 12.5 MG TAB PO PRN (11:15)
[2017-04-19] MEDS ORDERED: NS 1,000 ML IV SCH (11:30)
[2017-04-19 16:00] VITALS: BP 121/64
--- NOTE | 2017-04-19 16:15 | IPNPDOC ---
Text Note Date of Service The patient was seen on 04/19/17. NOTE Subjective: Patient is a 61 year old female with a PMHx of CAD s/p Stent ( 3 [place]), HTN, DLP, CVA, NIDDM2 and SLE who presented to the ER wt complaints of dizziness. She had associated nausea and vomiting. She also noted ringing in her ears. Patient received in MRI brain which revealed mild atrophy, chronic microvascular ischemic changes, small old parietal infarction and no acute intracranial process. Patient was seen and examined at the bedside. Patient has noted some dizziness that has persisted. Her orthostatic vital signs have remained negative. Objective: Vitals (See below) General: Lying in bed, no acute distress, comfortable, AAOx3 HEENT: NC, AT CVS: RRR, +S1S2 Lungs: Fair air entry b/l, -w/r/r Abdomen: Soft, ND, NT, +BSx4 Extremities: +PPx4, - Edema, - Calf tenderness Assessment and plan: Ataxia with Dizziness - likely 2/2 Vertigo - possibly 2/2 Meniere's disease - Presented with dizziness, room spinning, associated with ringing in ears - Recent viral illness with diarrhea - Physical with nystagmus - MRI negative for acute pathology - Improvement with meclizine in ER - Will c/w Meclizine - c/w Physical therapy s/p Diarrhea - GI panel 04/17: negative Subclinical hyperthyroidism - Depressed TSH, Normal Free T4 - Thyroid scan pending HTN - BP moderately controlled - c/w Metoprolol, Lisinopril, Chlorthalidone Hx of CVA - Incidentally found on imaging - c/w ASA DLP - c/w Atorvastatin Depression - c/w Sertraline Vitamin D deficiency - c/w Vitamin D supplementation NIDDM2 - c/w ISS SLE - no evidence of acute exacerbation at this time GERD - c/w Protonix DVT prophylaxis - c/w SCDs Disposition: - Awaiting PT clearance Kristen AYALA, I+O VSKristen, I+O Laboratory Tests 04/19/17 05:28 Red Blood Count 4.20, Mean Corpuscular Volume 71.1 L, Mean Corpuscular Hemoglobin 24.0 L, Mean Corpuscular Hemoglobin Concent 33.8, Red Cell Distribution Width 14.4, Calcium Level 9.2 Vital Signs Date Time Temp Pulse Resp B/P (MAP) Pulse Ox O2 Delivery O2 Flow Rate FiO2 04/19/17 08:00 97.9 89 18 114/66 (82) 97 Room Air I&O- Last 24 Hours up to 6 AM 04/19/17 05:59 Intake Total 1440 ml Output Total 1000 ml Balance 440 ml MARINA MCCRARY MD Apr 19, 2017 16:15
[2017-04-19] MEDS: ATORVASTATIN 20 MG TAB PO SCH (20:32)
[2017-04-19] MEDS: SERTRALINE 100 MG TAB PO SCH (20:32)
[2017-04-19] MEDS: NORTRIPTYLINE 25 MG CAP PO SCH (20:39)
[2017-04-19 21:00] VITALS: BP_SYST 100; BP_SYST 129; BP_SYST 131; BP_DIAS 53; BP_DIAS 68; BP_DIAS 79
[2017-04-20] MEDS: NS 1,000 ML IV SCH ×2 (01:20→13:15)
[2017-04-20 04:00] VITALS: BP_SYST 112; BP_SYST 117; BP_SYST 119; BP_DIAS 60; BP_DIAS 63; BP_DIAS 70
[2017-04-20] MEDS: HEPARIN SOD (PORCINE) 5000 UNITS/ML VIAL SC SCH ×3 (05:17→21:11)
[2017-04-20] MEDS: OMEPRAZOLE 20 MG CAP PO SCH (07:56)
[2017-04-20] MEDS: HumaLOG INSULIN (NovoLOG) PER UNIT SC SCH ×4 (07:56→20:22)
[2017-04-20] MEDS: MULTIVITAMINS CHILDREN'S CHEWABLE TABLET PO SCH (07:56)
[2017-04-20] MEDS: VITAMIN D 1,000 INTERNATIONAL UNITS TABLET PO SCH (07:56)
[2017-04-20] MEDS: ASCORBIC ACID 500 MG TAB PO SCH (07:57)
[2017-04-20] MEDS: SENOKOT S TAB PO SCH ×2 (07:57→21:11)
[2017-04-20] MEDS: ASPIRIN 325 MG TAB PO SCH (07:57)
[2017-04-20 08:00] VITALS: BP 131/79
[2017-04-20 08:00] LABS: MEAN CORPUSCULAR HEMOGLOBIN 23.4 pg (27.0-33.0); MEAN CORPUSCULAR HGB CONC 32.9 g/dl (32.0-36.5); MEAN CORPUSCULAR VOLUME 71.1 fl (80.0-96.0); RED CELL DISTRIBUTION WIDTH 14.7 % (11.5-14.5); WHITE BLOOD COUNT 7.6 K/mm3 (4.0-10.0)
[2017-04-20 08:25] LABS: ANION GAP 5 MEQ/L (8-16); BLOOD UREA NITROGEN 11 MG/DL (7-18); CALCIUM LEVEL 9.3 MG/DL (8.5-10.1); CARBON DIOXIDE LEVEL 29 MEQ/L (21-32); CHLORIDE LEVEL 108 MEQ/L (98-107); CREATININE FOR GFR 1.13 MG/DL (0.55-1.02); GLOMERULAR FILTRATION RATE > 60.0 (>51); GLUCOSE, FASTING 135 MG/DL (70-105); MAGNESIUM LEVEL 1.8 MG/DL (1.8-2.4); SODIUM LEVEL 142 MEQ/L (136-145)
[2017-04-20 08:27] LABS: POTASSIUM SERUM 5.4 MEQ/L (3.5-5.1)
--- NOTE | 2017-04-20 10:45 | REP ---
Thyroid uptake and scan: History: Hyperthyroidism. Technique: 322 microcuries of I 123 sodium iodine is ingested and 24 uptake value and functional thyroid imaging is acquired. Scintigraphic findings: The 24 uptake value is low measured at 14.2% (25-35%). Functional images demonstrate enlarged homogeneous thyroid lobes bilaterally. No cold or warm lesion is seen. Impression: Enlargement of the thyroid with homogeneous function. Low 24 uptake value. Signed by Jordon Calles MD 04/20/2017 05:18 P
[2017-04-20] MEDS: PROPRANOLOL 10 MG TAB PO SCH ×2 (12:42→21:12)
--- NOTE | 2017-04-20 13:23 | IPNPDOC ---
Text Note Date of Service The patient was seen on 04/20/17. NOTE Subjective: Patient is a 61 year old female with a PMHx of CAD s/p Stent ( 3 [place]), HTN, DLP, CVA, NIDDM2 and SLE who presented to the ER [facility] complaints of dizziness. She had associated nausea and vomiting. She also noted ringing in her ears. Patient received in MRI brain which revealed mild atrophy, chronic microvascular ischemic changes, small old parietal infarction and no acute intracranial process. Patient was seen and examined at the bedside. Patient notes that she is having improvement in her dizziness with the meclizine that was added to her regimen. Her orthostatic vital signs remain negative and will be discontinued. Objective: Vitals (See below) General: Lying in bed, no acute distress, comfortable, AAOx3 HEENT: NC, AT CVS: RRR, +S1S2 Lungs: Fair air entry b/l, -no appreciable wheezing / rales / rhonchi Abdomen: Soft, ND, NT, +BSx4 Extremities: - Edema, - Calf tenderness Assessment and plan: Ataxia with Dizziness - likely 2/2 Vertigo - possibly 2/2 Meniere's disease - Presented with dizziness, room spinning, associated with ringing in ears - Recent viral illness with diarrhea - Physical with nystagmus - Mild CRP elevation - MRI negative for acute pathology - Improvement with meclizine in ER - c/w Meclizine - c/w Physical therapy until cleared s/p Diarrhea - GI panel 04/17: negative Low TSH - possibly subacute painless thyroiditis, possibly subclinical hyperthyroid - Presented with symptoms of hyperthyroidism - Depressed TSH, Normal Free T4 - Thyroid scan reveals decreased uptake - will start low dose propranolol - will need to have outpatient repeat thyroid function in 3-4 weeks HTN - BP moderately controlled - c/w Metoprolol, Lisinopril, Chlorthalidone Hx of CVA - Incidentally found on imaging - c/w ASA DLP - c/w Atorvastatin Depression - c/w Sertraline Vitamin D deficiency - c/w Vitamin D supplementation NIDDM2 - c/w ISS SLE - no evidence of acute exacerbation at this time GERD - c/w Protonix DVT prophylaxis - c/w SCDs Disposition: - Awaiting PT clearance VS,Fishbone, I+O VS, Fishbone, I+O Laboratory Tests 04/20/17 07:28 Red Blood Count 4.22, Mean Corpuscular Volume 71.1 L, Mean Corpuscular Hemoglobin 23.4 L, Mean Corpuscular Hemoglobin Concent 32.9, Red Cell Distribution Width 14.7 H, Calcium Level 9.3 Vital Signs Date Time Temp Pulse Resp B/P (MAP) Pulse Ox O2 Delivery O2 Flow Rate FiO2 04/20/17 12:42 90 131/79 04/20/17 08:00 98.7 18 96 Room Air I&O- Last 24 Hours up to 6 AM 04/20/17 06:00 Intake Total 1280 ml Output Total 1600 ml Balance -320 ml MARINA MCCRARY MD Apr 20, 2017 13:23
[2017-04-20 14:00] VITALS: BP 131/73
[2017-04-20 20:00] VITALS: BP 125/79
[2017-04-20] MEDS: SERTRALINE 100 MG TAB PO SCH (21:11)
[2017-04-20] MEDS: ATORVASTATIN 20 MG TAB PO SCH (21:12)
[2017-04-20] MEDS: NORTRIPTYLINE 25 MG CAP PO SCH (21:12)
[2017-04-21 00:06] LABS: COMPLEMENT TOTAL (CH50) > 65 U/mL (42-60)
[2017-04-21] MEDS: NS 1,000 ML IV SCH (01:45)
[2017-04-21] MEDS: HEPARIN SOD (PORCINE) 5000 UNITS/ML VIAL SC SCH ×2 (05:31→13:24)
[2017-04-21 06:00] VITALS: BP 115/60
[2017-04-21 07:26] LABS: MEAN CORPUSCULAR HEMOGLOBIN 23.3 pg (27.0-33.0); MEAN CORPUSCULAR HGB CONC 32.7 g/dl (32.0-36.5); MEAN CORPUSCULAR VOLUME 71.1 fl (80.0-96.0); RED CELL DISTRIBUTION WIDTH 14.7 % (11.5-14.5); WHITE BLOOD COUNT 8.7 K/mm3 (4.0-10.0)
[2017-04-21 07:45] LABS: ANION GAP 8 MEQ/L (8-16); BLOOD UREA NITROGEN 10 MG/DL (7-18); CALCIUM LEVEL 8.5 MG/DL (8.5-10.1); CARBON DIOXIDE LEVEL 27 MEQ/L (21-32); CHLORIDE LEVEL 107 MEQ/L (98-107); CREATININE FOR GFR 1.11 MG/DL (0.55-1.02); GLOMERULAR FILTRATION RATE > 60.0 (>51); GLUCOSE, FASTING 125 MG/DL (70-105); MAGNESIUM LEVEL 1.8 MG/DL (1.8-2.4); POTASSIUM SERUM 4.5 MEQ/L (3.5-5.1); SODIUM LEVEL 142 MEQ/L (136-145)
[2017-04-21] MEDS: HumaLOG INSULIN (NovoLOG) PER UNIT SC SCH ×2 (08:38→13:06)
[2017-04-21] MEDS: ASCORBIC ACID 500 MG TAB PO SCH (08:38)
[2017-04-21] MEDS: OMEPRAZOLE 20 MG CAP PO SCH (08:38)
[2017-04-21] MEDS: ASPIRIN 325 MG TAB PO SCH (08:38)
[2017-04-21] MEDS: MULTIVITAMINS CHILDREN'S CHEWABLE TABLET PO SCH (08:38)
[2017-04-21] MEDS: VITAMIN D 1,000 INTERNATIONAL UNITS TABLET PO SCH (08:38)
[2017-04-21 08:39] VITALS: BP 115/60
[2017-04-21] MEDS: PROPRANOLOL 10 MG TAB PO SCH (08:39)
[2017-04-21] MEDS: SENOKOT S TAB PO SCH (08:39)
[2017-04-21] MEDS ORDERED: MECL12.575 PO (10:56)
[2017-04-21] MEDS ORDERED: PROP10TAB PO (10:56)
--- NOTE | 2017-04-21 13:54 | DSES ---
DATE OF ADMISSION: 04/16/2017 DATE OF DISCHARGE: 04/21/2017 ATTENDING PHYSICIANS: MD Joanie Avila MD DICTATED BY: Mariluz Uribe MD PRIMARY CARE PHYSICIAN: Hudson Sinclair MD REFERRING PHYSICIAN: None. CONSULTING PHYSICIANS: None. CONDITION ON DISCHARGE: Stable. FINAL DIAGNOSIS: Ataxia and dizziness likely secondary to vertigo, possibly secondary to Meniere's disease. PROCEDURES: None. HISTORY OF PRESENT ILLNESS: Patient is a 61-year-old -[place] female with a past medical history of coronary artery disease status post stent, history of three myocardial infarctions in the past, hypertension, dyslipidemia, cerebrovascular accident (CVA), xeo-lcugnac-alcbgpydd diabetes mellitus type 2, and systemic lupus erythematosus (SLE) who presented to the emergency room (ER) with complaints of dizziness. She had associated nausea and vomiting. She also noted ringing in her ears. The patient received an MRI of the brain which revealed mild atrophy, chronic microvascular ischemic changes, a small old parietal infarction and no acute intracranial processes were noted. HOSPITAL COURSE: 1. Dizziness, likely secondary to vertigo, possibly secondary to Meniere's disease, who presented with dizziness and room spinning, associated with ringing in her ears. Recent viral illness and diarrhea. Physical revealed some nystagmus, mild CRP elevation. MRI was negative for acute pathology. The patient had improved with meclizine received in the emergency room and had received meclizine later in her hospital course. Physical therapy has cleared the patient for discharge to home. 2. Status post diarrhea. Gastrointestinal (GI) prophylaxis on 04/17 was negative. The patient's diarrhea has resolved. 3. Low TSH, possibly secondary to subacute pain and thyroiditis, possibly subclinical hyperthyroidism. Presented with symptoms of hyperparathyroidism, depressed TSH and a normal free T4. Thyroid scan was acquired which revealed a decreased uptake diffusely. The patient was started on a low dose of propranolol. The patient was advised to have outpatient repeat thyroid function scan completed in 3-[address] Hudson Sinclair to complete workup as an outpatient. 4. Hypertension. Blood pressure remains moderately controlled. Patient has been started on propranolol. Her other medications for outpatient have been kept on hold. 5. History of CVA incidentally found on imaging. Continue with aspirin. 6. Dyslipidemia. Continue with atorvastatin. 7. Depression. Continue with sertraline. 8. Vitamin D deficiency. Continue with vitamin D supplementation. 9. Ukj-tdcbvza-tkxdjnbkx diabetes mellitus type 2. Was put on insulin sliding scale as an inpatient. Will continue with oral glycemic agents as an outpatient. 10. SLE. No evidence of acute exacerbation at this time. 11. Gastroesophageal reflux disease (GERD). Continue with Protonix. 12. Deep vein thrombosis (DVT) prophylaxis. She has been put on sleeve compression devices. DISCHARGE MEDICATIONS: The patient has been discharged home with the following medication list: - alprazolam 0.25 mg by mouth at bedtime as needed for anxiety - ascorbic acid 500 mg by mouth daily - aspirin 325 mg by mouth daily - atorvastatin 80 mg by mouth at bedtime - multivitamin one tablet by mouth daily - nortriptyline 25 mg by mouth at bedtime - omeprazole 40 mg by mouth daily - sertraline 100 mg by mouth at bedtime - tizanidine 4 mg by mouth three times a day as needed for muscle spasms - vitamin D 2000 units by mouth daily New medications prescribed include: - meclizine 12.5 mg by mouth every 8 hours as needed for dizziness - propranolol 5 mg by mouth twice a day Stopped medications include: - chlorthalidone 25 mg by mouth daily - diphenhydramine 50 mg by mouth at bedtime - lisinopril 5 mg by mouth daily - metoprolol 25 mg by mouth daily DISCHARGE INSTRUCTIONS: The patient has been advised to followup with her primary care provider within the next seven days. She has been advised to remain compliant with treatment plan and medications, and return to the emergency room if she experiences any problems. Time spent on discharge greater than 35 minutes.
== END 2017-04-21 13:49 | disposition home or self-care (01) | DRG 149 ==
LOC: M ED 11:44 → EDBD 11:44 → M ED INP 15:59 → M PCU 18:04 → M MS4PR 04-19 10:15
PROVIDERS: ADMIT Internal Medicine; ATTEND General Practice
DX: H81.09 Meniere's disease, unspecified ear (principal); M32.10 Systemic lupus erythematosus, organ or system involvement unspecified; E55.9 Vitamin D deficiency, unspecified; R27.0 Ataxia, unspecified; I25.10 Atherosclerotic heart disease of native coronary artery without angina pectoris; I25.2 Old myocardial infarction; I10 Essential (primary) hypertension; E78.5 Hyperlipidemia, unspecified; E11.9 Type 2 diabetes mellitus without complications; F32.9 Major depressive disorder, single episode, unspecified; K21.9 Gastro-esophageal reflux disease without esophagitis; Z79.899 Other long term (current) drug therapy; Z79.82 Long term (current) use of aspirin; M19.90 Unspecified osteoarthritis, unspecified site; F41.9 Anxiety disorder, unspecified; E21.3 Hyperparathyroidism, unspecified; Z86.73 Personal history of transient ischemic attack (TIA), and cerebral infarction without residual deficits

== ENCOUNTER → 2017-06-20 | Outpatient (REF) | payer MEDICARE, MEDICAID ==
[~2017-06-20] MED LIST changes: +ATOR80TA59 PO; +CHLO25TA PO; +DIPH25CA PO; +LISI-542 PO; +MECL12.575 PO; +PROP10TAB PO; +VITA200016 PO
[2017-06-20 14:56] LABS: ANION GAP 5 MEQ/L (8-16); BLOOD UREA NITROGEN 11 MG/DL (7-18); CALCIUM LEVEL 8.9 MG/DL (8.5-10.1); CARBON DIOXIDE LEVEL 33 MEQ/L (21-32); CHLORIDE LEVEL 102 MEQ/L (98-107); CREATININE FOR GFR 0.93 MG/DL (0.55-1.02); FREE T4 0.95 NG/DL (0.76-1.46); GLOMERULAR FILTRATION RATE > 60.0 (>51); GLUCOSE, FASTING 152 MG/DL (70-105); POTASSIUM SERUM 3.5 MEQ/L (3.5-5.1); SODIUM LEVEL 140 MEQ/L (136-145)
== END ==
LOC: M SFHCPLAZ 11:47
PROVIDERS: ATTEND Family Medicine
DX: E11.9 Type 2 diabetes mellitus without complications (principal); R00.0 Tachycardia, unspecified
CPT/HCPCS: 80048; 82043; 83036; 84439; 84443; 84481; G0463

== ENCOUNTER → 2017-06-23 | Outpatient (REF) | payer MEDICARE, MEDICAID ==
[2017-06-23 14:03] LABS: RETIC HEMOGLOBIN EQUIVALENT 25.6 pg (24-36); RETICULOCYTE % 1.1 % (0.5-1.5)
[2017-06-23 14:04] LABS: PERCENT SATURATION 10.6 % (13.2-45.0)
== END ==
LOC: M LAB REF 13:29
PROVIDERS: ATTEND Internal Medicine Medical Oncology
DX: D64.9 Anemia, unspecified (principal)

== ENCOUNTER → 2017-07-07 | Outpatient (REF) | payer MEDICARE ==
[~2017-07-07] MED LIST changes: +BENA25CA4 PO; +FERR325T3 PO; +FLON1SPR; +GABA-282 PO; +METF500T4; +NITR0.4S14 SL; +PROP60CA PO; +ZOFR20TA PO; +ZOLO50TA PO
== END ==
LOC: M LABDRAWP 17:08
PROVIDERS: ATTEND Psychiatry & Neurology Neurology
DX: E11.9 Type 2 diabetes mellitus without complications (principal); Z86.73 Personal history of transient ischemic attack (TIA), and cerebral infarction without residual deficits; E03.9 Hypothyroidism, unspecified; D68.59 Other primary thrombophilia

== ENCOUNTER → 2017-07-10 | Outpatient (CLI) | payer MEDICARE, MEDICAID ==
[~2017-07-10] MED LIST changes: -BENA25CA4 PO; -FERR325T3 PO; -FLON1SPR; -GABA-282 PO; -METF500T4; -NITR0.4S14 SL; -PROP60CA PO; -ZOFR20TA PO; -ZOLO50TA PO
--- NOTE | 2017-07-12 13:01 | SLEEPCENT ---
DATE OF STUDY: 07/10/2017 ORDERING PROVIDER: Osiris Mancilla NP Nocturnal polysomnography was performed for evaluation of sleep physiology in this patient with a prior history of obstructive sleep apnea syndrome. 7 hours and 36 minutes of data were reviewed. There were 414 minutes of sleep identified. Sleep latency was short at 6 minutes. Rapid eye movement (REM) latency was delayed at 236 minutes. Sleep architecture was fragmented with poor progression early in the study. There were two REM cycles. Overall sleep efficiency was 92%, but there was reduction in REM time. The patient's electrocardiogram showed a sinus rhythm with an average heart rate of 84 beats per minute. Electroencephalogram (EEG) showed normal waveforms for awake and sleep. There were 64 respiratory events identified of 10 seconds in duration or greater for an apnea-hypopnea index of 9.1. The events were primarily obstructive, not exclusive to sleep stage, more frequent in the supine posture. There was some limb activity. Limb movement arousal index was within normal limits at 2.5. Oxygen desaturations were seen into the 80s. IMPRESSION: Obstructive sleep apnea syndrome (G47.33). Apnea-hypopnea index 9.1. RECOMMENDATION: The patient should be encouraged to return to the sleep disorder center for pressure therapy. In the interim, alcohol and sedative avoidance should be practiced and caution exercised during the operation of motor vehicles.
== END ==
LOC: M SLEEP 20:00
PROVIDERS: ATTEND Nurse Practitioner Adult Health
DX: G47.33 Obstructive sleep apnea (adult) (pediatric) (principal)

== ENCOUNTER 2017-07-20 13:20 | Day surgery (SDC) | payer MEDICARE, MEDICAID ==
[~2017-07-20] VITALS: Ht 170.2 cm; Wt 84.1 kg
[~2017-07-20 13:20] MED LIST changes: +BENA25CA4 PO; +FERR325T3 PO; +FLON1SPR; +GABA-282 PO; +METF500T4; +NITR0.4S14 SL; +PROP60CA PO; +ZOFR20TA PO; +ZOLO50TA PO
[2017-07-20] MEDS ORDERED: LR 1,000 ML IV ONE (13:30)
[2017-07-20] MEDS ORDERED: LIDOCAINE 1% MDV 20ML VIAL As Ordered ONE (15:27)
[2017-07-20] MEDS ORDERED: MIDAZOLAM INJ 2 MG/2 ML VIAL (J2250) As Ordered ONE ×2 (15:52→16:01)
[2017-07-20] MEDS ORDERED: fentaNYL 100 MCG/2 ML INJECTION (J3010) As Ordered ONE (16:00)
[2017-07-20] MEDS ORDERED: ceFAZolin 2 GM/D5W 50 ML IV BAG (J0690 PER 500MG) As Ordered ONE (16:10)
[2017-07-20] MEDS ORDERED: PROPOFOL 200 MG/20 ML VIAL As Ordered ONE (16:22)
[2017-07-20 17:26] VITALS: BP 141/63
--- NOTE | 2017-07-21 18:58 | RO ---
DATE OF PROCEDURE: 07/20/2017 PREOPERATIVE DIAGNOSIS: Cryptogenic stroke. POSTOPERATIVE DIAGNOSIS: Cryptogenic stroke. PROCEDURE PERFORMED: Implantation of [employer] implantable loop recorder. SURGEON: Zen Mayfield MD DELIVERY PROFESSIONAL: None. ANESTHESIA: 1% lidocaine local/monitored anesthetic care. FINDINGS: Cryptogenic stroke. No specimens. ESTIMATED BLOOD LOSS: Less than 1 mL. No blood products replaced. No drains. No complications. PROCEDURE DESCRIPTION: 1% lidocaine was used for local anesthetic. An incision was made with a #15 blade approximately 0.75 cm to 1 cm in length, roughly close to the 4th left interspace and about 1 inch lateral to the left parasternal border. The insertion tool was then placed into the incision and advanced parallel to the skin in the subcutaneous fat in a mostly caudal direction but also slightly left lateral. The insertion tool was rotated 180 degrees, and then the loop recorder was advanced using the plunger to place it into the subcutaneous fat. The initial R wave amplitude was 0.63 millivolts. The incision was then approximated using subcutaneous suture consisting of #4-0 Biosyn with the free ends protruding through the skin to either side of the incision. Next, two layers of Dermabond were applied. The Biosyn suture was then pulled through the incision line and removed. Next, Mastisol was applied above and below the incision line and then Steri-strips were placed cross-pino, perpendicular to the incision line. Patient tolerated the procedure well without any immediate complications. The implantable loop recorder implanted was a Endoclear Reveal LINQ, model LNQ11 with serial #[id number].
== END 2017-07-20 17:28 | disposition home or self-care (01) ==
LOC: M SDC 13:20
PROVIDERS: ATTEND Internal Medicine Cardiovascular Disease
DX: I63.9 Cerebral infarction, unspecified (principal); I11.9 Hypertensive heart disease without heart failure; I49.3 Ventricular premature depolarization; E78.2 Mixed hyperlipidemia; E66.3 Overweight; Z68.28 Body mass index [BMI] 28.0-28.9, adult; I25.2 Old myocardial infarction; Z95.5 Presence of coronary angioplasty implant and graft; Z87.891 Personal history of nicotine dependence; K21.9 Gastro-esophageal reflux disease without esophagitis; E11.9 Type 2 diabetes mellitus without complications; M32.9 Systemic lupus erythematosus, unspecified; G47.33 Obstructive sleep apnea (adult) (pediatric); D64.9 Anemia, unspecified; K58.9 Irritable bowel syndrome, unspecified; M10.9 Gout, unspecified; M19.90 Unspecified osteoarthritis, unspecified site; Z79.899 Other long term (current) drug therapy; Z79.84 Long term (current) use of oral hypoglycemic drugs; Z79.82 Long term (current) use of aspirin
CPT/HCPCS: 33282; C1764; J0690; J2250; J3010

== ENCOUNTER 2017-08-17 13:00 | Day surgery (SDC) | payer MEDICARE, MEDICAID ==
[2017-08-17] MEDS ORDERED: MIDAZOLAM INJ 2 MG/2 ML VIAL (J2250) As Ordered ×3 (13:56)
[2017-08-17] MEDS ORDERED: LIDOCAINE VISCOUS 2% SOLN 15ML UDC As Ordered (14:06)
[2017-08-17] MEDS ORDERED: NS 1,000 ML IV (14:15)
[2017-08-17 14:16] LABS: BEDSIDE GLUCOSE 118 MG/DL (70-105)
[2017-08-17] MEDS: LIDOCAINE VISCOUS 2% SOLN 15ML UDC PO (14:17)
[2017-08-17] MEDS: MIDAZOLAM INJ 2 MG/2 ML VIAL (J2250) IV ×2 (14:21→14:26)
== END 2017-08-17 15:20 | disposition home or self-care (01) ==
LOC: M OPP 13:00
DX: I63.9 Cerebral infarction, unspecified (principal); I34.0 Nonrheumatic mitral (valve) insufficiency; I70.0 Atherosclerosis of aorta; I35.8 Other nonrheumatic aortic valve disorders; I35.1 Nonrheumatic aortic (valve) insufficiency
CPT/HCPCS: J2250

== ENCOUNTER → 2017-08-27 | Outpatient (CLI) | payer MEDICARE, MEDICAID | LOC: M SLEEP 20:00 | DX: G47.33 Obstructive sleep apnea (adult) (pediatric) (principal) | CPT/HCPCS: 95811 ==

== ENCOUNTER → 2017-09-21 | Outpatient (CLI) | payer MEDICARE, MEDICAID | LOC: M WUC 09:36 | DX: M75.42 Impingement syndrome of left shoulder (principal) | CPT/HCPCS: 73030 ==

== ENCOUNTER 2017-10-17 08:43 | Outpatient (RCR) | payer MEDICARE, MEDICAID | END 2017-11-05 | LOC: M PT 08:43 | DX: Z51.89 Encounter for other specified aftercare (principal); M75.42 Impingement syndrome of left shoulder ==

== ENCOUNTER 2017-10-31 21:48 | Emergency (ER) | payer MEDICARE, MEDICAID ==
[2017-10-31] MEDS: NS 1,000 ML IV (22:07)
[2017-10-31] MEDS: ASPIRIN 81 MG CHEW TABLET PO (22:14)
[2017-10-31] MEDS: NITROGLYCERIN 0.4 MG SUBL TABLET SL (22:15)
[2017-10-31 22:30] LABS: BASO # 0.1 10^3/uL (0.0-0.2); BASO % 0.4 % (0.0-1.0); EOS # 0.3 10^3/uL (0.0-0.50); HEMATOCRIT 33.7 % (36.0-47.0); HEMOGLOBIN 10.7 g/dl (12.0-16.0); IMMATURE GRANULOCYTE % 0.5 % (0-3.0); LYMPH # 2.7 10^3/uL (1.5-4.5); LYMPH % 19.8 % (24.0-44.0); MEAN CORPUSCULAR HEMOGLOBIN 22.4 pg (27.0-33.0); MEAN CORPUSCULAR HGB CONC 31.8 g/dl (32.0-36.5); MEAN CORPUSCULAR VOLUME 70.5 fl (80.0-96.0); MONO # 0.6 10^3/uL (0.0-0.8); MONO % 4.3 % (0.0-5.0); PLATELET COUNT, AUTOMATED 203 10^3/uL (150-450); RED BLOOD COUNT 4.78 10^6/uL (4.00-5.40); RED CELL DISTRIBUTION WIDTH 17.2 % (11.5-14.5); WHITE BLOOD COUNT 13.7 10^3/uL (4.0-10.0)
[2017-10-31 22:34] LABS: PROTHROMBIN TIME 12.2 SECONDS (12.4-14.5)
[2017-10-31 22:42] LABS: ALBUMIN 3.4 GM/DL (3.2-5.2); ALBUMIN/GLOBULIN RATIO 0.76 (1.00-1.93); ALKALINE PHOSPHATASE 138 U/L (45-117); ALT/SGPT 15 U/L (12-78); ANION GAP 6 MEQ/L (8-16); AST/SGOT 11 U/L (7-37); BILIRUBIN,DIRECT < 0.1 MG/DL (0.0-0.2); BILIRUBIN,TOTAL 0.2 MG/DL (0.2-1.0); BLOOD UREA NITROGEN 9 MG/DL (7-18); CALCIUM LEVEL 8.6 MG/DL (8.5-10.1); CARBON DIOXIDE LEVEL 29 MEQ/L (21-32); CHLORIDE LEVEL 106 MEQ/L (98-107); CPK CREATINE PHOSPHOKINASE 42 U/L (26-192); CREATININE FOR GFR 1.07 MG/DL (0.55-1.30); GLOMERULAR FILTRATION RATE > 60.0 (>51); GLUCOSE, FASTING 188 MG/DL (70-100); SODIUM LEVEL 141 MEQ/L (136-145); TOTAL PROTEIN 7.9 GM/DL (6.4-8.2); TROPONIN I < 0.02 NG/ML (< 0.10)
[2017-10-31 22:43] LABS: CK-MB VALUE MASS < 1.0 NG/ML (<3.6); MB/CK RELATIVE INDEX 2.38 (< OR =4)
[2017-11-01 03:29] LABS: CK-MB VALUE MASS < 1.0 NG/ML (<3.6); CPK CREATINE PHOSPHOKINASE 36 U/L (26-192); MB/CK RELATIVE INDEX 2.77 (< OR =4); TROPONIN I < 0.02 NG/ML (< 0.10)
== END 2017-11-01 03:53 | disposition home or self-care (01) ==
LOC: M ED 11-01 03:53
DX: R07.89 Other chest pain (principal); I25.2 Old myocardial infarction; I10 Essential (primary) hypertension; E78.5 Hyperlipidemia, unspecified; J30.2 Other seasonal allergic rhinitis; Z82.49 Family history of ischemic heart disease and other diseases of the circulatory system; Z79.82 Long term (current) use of aspirin; Z79.84 Long term (current) use of oral hypoglycemic drugs; Z79.899 Other long term (current) drug therapy
CPT/HCPCS: 71045

== ENCOUNTER 2017-11-02 22:46 | Inpatient (IN) | payer MEDICARE, MEDICAID ==
[2017-11-02] MEDS: NS 500 ML IV (23:15)
[2017-11-02] MEDS: METOCLOPRAMIDE INJ 10MG/2ML VIAL (J2765) IV (23:15)
[2017-11-02 23:28] LABS: BASO # 0.1 10^3/uL (0.0-0.2); BASO % 0.4 % (0.0-1.0); EOS # 0.3 10^3/uL (0.0-0.50); EOS % 1.9 % (0.0-3.0); HEMATOCRIT 32.4 % (36.0-47.0); HEMOGLOBIN 10.2 g/dl (12.0-16.0); IMMATURE GRANULOCYTE % 0.5 % (0-3.0); LYMPH % 13.3 % (24.0-44.0); MEAN CORPUSCULAR HEMOGLOBIN 22.2 pg (27.0-33.0); MEAN CORPUSCULAR HGB CONC 31.5 g/dl (32.0-36.5); MEAN CORPUSCULAR VOLUME 70.6 fl (80.0-96.0); MONO # 0.5 10^3/uL (0.0-0.8); MONO % 3.6 % (0.0-5.0); NEUTROPHILS # 11.9 10^3/uL (1.8-7.7); NEUTROPHILS % 80.3 % (36.0-66.0); PLATELET COUNT, AUTOMATED 178 10^3/uL (150-450); RED BLOOD COUNT 4.59 10^6/uL (4.00-5.40); RED CELL DISTRIBUTION WIDTH 17.1 % (11.5-14.5); WHITE BLOOD COUNT 14.8 10^3/uL (4.0-10.0)
[2017-11-02 23:51] LABS: ALBUMIN 3.1 GM/DL (3.2-5.2); ALBUMIN/GLOBULIN RATIO 0.65 (1.00-1.93); ALKALINE PHOSPHATASE 113 U/L (45-117); ALT/SGPT 11 U/L (12-78); ANION GAP 7 MEQ/L (8-16); AST/SGOT 7 U/L (7-37); BILIRUBIN,DIRECT 0.1 MG/DL (0.0-0.2); BILIRUBIN,TOTAL 0.5 MG/DL (0.2-1.0); BLOOD UREA NITROGEN 8 MG/DL (7-18); CALCIUM LEVEL 8.9 MG/DL (8.5-10.1); CARBON DIOXIDE LEVEL 24 MEQ/L (21-32); CHLORIDE LEVEL 107 MEQ/L (98-107); GLOMERULAR FILTRATION RATE > 60.0 (>51); GLUCOSE, FASTING 239 MG/DL (70-100); LIPASE 83 U/L (73-393); POTASSIUM SERUM 3.9 MEQ/L (3.5-5.1); SODIUM LEVEL 138 MEQ/L (136-145); TOTAL PROTEIN 7.9 GM/DL (6.4-8.2)
[2017-11-03 00:03] LABS: LACTIC ACID SEPSIS PROTOCOL 2.5 MMOL/L (0.4-2.0)
[2017-11-03] MEDS: NS 1,000 ML IV ×3 (00:15→05:31)
[2017-11-03] MEDS: diphenhydrAMINE INJ 50MG/ML VIAL (J1200) IV (01:00)
[2017-11-03] MEDS: HALOPERIDOL 5 MG/ML VIAL (J1630) IV (01:00)
[2017-11-03] MEDS ORDERED: ISOVUE-370 76% 100ML VIAL (Q9967) As Ordered (01:54)
[2017-11-03] MEDS ORDERED: DEXTROSE 50% 50 ML SYRINGE IV (02:30)
[2017-11-03] MEDS ORDERED: GLUCOSE 4 GM CHEW TABLET PO (02:30)
[2017-11-03] MEDS ORDERED: GLUCAGON FOR INJ 1 MG VIAL (J1610) SC (02:30)
[2017-11-03] MEDS ORDERED: ALPRAZolam 0.25 MG TAB PO (02:45)
[2017-11-03 03:01] LABS: APPEARANCE, URINE CLEAR (CLEAR); BACTERIA, URINE AUTO NEGATIVE (NEGATIVE); BILIRUBIN, URINE AUTO NEGATIVE (NEGATIVE); BLOOD, URINE BLOOD NEGATIVE (NEGATIVE); COLOR, URINE STRAW (YELLOW); GLUCOSE, URINE (UA) AUTO 3+ mg/dL (NEGATIVE); KETONE, URINE AUTO NEGATIVE (NEGATIVE); LEUKOCYTE ESTERASE, URINE AUTO NEGATIVE (NEGATIVE); NITRITE, URINE AUTO NEGATIVE (NEGATIVE); PROTEIN, URINE AUTO NEGATIVE (NEGATIVE); RBC, URINE AUTO 0 /HPF (0-3); SQUAMOUS EPITHELIAL CELL UR AU 0 /HPF (0-6); UROBILINOGEN, URINE AUTO 0.2 mg/dL (0.0-2.0); WBC, URINE AUTO 0 /HPF (0-3)
[2017-11-03 03:09] LABS: C REACTIVE PROTEIN QUANTITATIV 2.34 MG/DL (0.00-0.30)
[2017-11-03] MEDS: NORTRIPTYLINE 25 MG CAP PO ×2 (03:56→21:00)
[2017-11-03] MEDS: ATORVASTATIN 20 MG TAB PO ×2 (03:56→21:00)
[2017-11-03 04:01] LABS: HEMATOCRIT 30.9 % (36.0-47.0); HEMOGLOBIN 9.7 g/dl (12.0-16.0); MEAN CORPUSCULAR HEMOGLOBIN 22.1 pg (27.0-33.0); MEAN CORPUSCULAR HGB CONC 31.4 g/dl (32.0-36.5); MEAN CORPUSCULAR VOLUME 70.5 fl (80.0-96.0); PLATELET COUNT, AUTOMATED 186 10^3/uL (150-450); RED BLOOD COUNT 4.38 10^6/uL (4.00-5.40); RED CELL DISTRIBUTION WIDTH 17.1 % (11.5-14.5); WHITE BLOOD COUNT 14.6 10^3/uL (4.0-10.0)
[2017-11-03] MEDS: ONDANSETRON 4MG/2ML VIAL (J2405) IV (04:12)
[2017-11-03] MEDS: CIPROFLOXACIN 400 MG in APPROPRIATE DILUENT 1 EA IV ×2 (04:12→15:58)
[2017-11-03 04:20] LABS: ANION GAP 6 MEQ/L (8-16); BLOOD UREA NITROGEN 7 MG/DL (7-18); CALCIUM LEVEL 7.5 MG/DL (8.5-10.1); CARBON DIOXIDE LEVEL 24 MEQ/L (21-32); CHLORIDE LEVEL 110 MEQ/L (98-107); CREATININE FOR GFR 0.86 MG/DL (0.55-1.30); GLOMERULAR FILTRATION RATE > 60.0 (>51); GLUCOSE, FASTING 202 MG/DL (70-100); POTASSIUM SERUM 5.1 MEQ/L (3.5-5.1); SODIUM LEVEL 140 MEQ/L (136-145)
[2017-11-03] MEDS: metroNIDAZOLE 500 MG in APPROPRIATE DILUENT 1 EA IV ×3 (05:30→20:53)
[2017-11-03] MEDS: HEPARIN SOD (PORCINE) 5000 UNITS/ML VIAL SC ×3 (05:31→20:59)
[2017-11-03] MEDS: HumaLOG INSULIN (NovoLOG) PER UNIT SC ×3 (06:49→18:00)
[2017-11-03] MEDS: PANTOPRAZOLE 40MG INJ (PROTONIX) (C9113) IV ×2 (08:11→09:00)
[2017-11-03] MEDS: azaTHIOprine 50 MG TAB (J7500) PO ×3 (08:11→21:00)
[2017-11-03] MEDS: VENLAFAXINE **XR** 37.5 MG CAPSULE PO ×2 (08:13→09:00)
[2017-11-03] MEDS: GABAPENTIN 300 MG CAP PO ×3 (08:13→21:00)
[2017-11-03] MEDS: ASPIRIN 81 MG ENTERIC TAB PO ×2 (08:13→09:00)
[2017-11-03] MEDS: PROPRANOLOL 60 MG LA CAP PO ×2 (08:16→09:00)
[2017-11-03] MEDS: MULTIVITAMINS CHILDREN'S CHEWABLE TABLET PO (09:00)
[2017-11-03] MEDS: FLUTICASONE PROP 0.05% NASAL SPRAY 16 GM (FLONASE) ×2 (09:00→21:00)
[2017-11-03] MEDS: ASCORBIC ACID 500 MG TAB PO (09:00)
[2017-11-03] MEDS: VITAMIN D 1,000 INTERNATIONAL UNITS TABLET PO ×4 (09:00→18:28)
[2017-11-03] MEDS: METOCLOPRAMIDE INJ 10MG/2ML VIAL (J2765) IV ×2 (10:21→20:58)
[2017-11-03 12:09] LABS: BEDSIDE GLUCOSE 187 MG/DL (70-105)
[2017-11-03] MEDS: D5W/0.45% SODIUM CHLORIDE 1,000 ML IV (12:14)
[2017-11-03 12:44] LABS: ANION GAP 8 MEQ/L (8-16); BLOOD UREA NITROGEN 6 MG/DL (7-18); CALCIUM LEVEL 8.4 MG/DL (8.5-10.1); CARBON DIOXIDE LEVEL 25 MEQ/L (21-32); CHLORIDE LEVEL 109 MEQ/L (98-107); CREATININE FOR GFR 0.82 MG/DL (0.55-1.30); GLOMERULAR FILTRATION RATE > 60.0 (>51); GLUCOSE, FASTING 107 MG/DL (70-100); POTASSIUM SERUM 4.2 MEQ/L (3.5-5.1); SODIUM LEVEL 142 MEQ/L (136-145)
[2017-11-03 12:47] LABS: BEDSIDE GLUCOSE 112 MG/DL (70-105)
[2017-11-03] MEDS: PROMETHAZINE INJ 25 MG/ML VIAL (J2550) IV (15:58)
[2017-11-03 21:03] LABS: BEDSIDE GLUCOSE 127 MG/DL (70-105)
[2017-11-03 21:04] LABS: BEDSIDE GLUCOSE 187 MG/DL (70-105)
[2017-11-04] MEDS: HumaLOG INSULIN (NovoLOG) PER UNIT SC ×5 (00:40→20:48)
[2017-11-04] MEDS: D5W/0.45% SODIUM CHLORIDE 1,000 ML IV ×2 (00:40→12:04)
[2017-11-04] MEDS: CIPROFLOXACIN 400 MG in APPROPRIATE DILUENT 1 EA IV ×2 (03:26→14:46)
[2017-11-04] MEDS: METOCLOPRAMIDE INJ 10MG/2ML VIAL (J2765) IV (04:31)
[2017-11-04] MEDS: metroNIDAZOLE 500 MG in APPROPRIATE DILUENT 1 EA IV ×3 (04:31→20:57)
[2017-11-04 06:02] LABS: HEMATOCRIT 30.4 % (36.0-47.0); HEMOGLOBIN 9.7 g/dl (12.0-15.5); MEAN CORPUSCULAR HEMOGLOBIN 22.2 pg (27.0-33.0); MEAN CORPUSCULAR HGB CONC 31.9 g/dl (32.0-36.5); MEAN CORPUSCULAR VOLUME 69.7 fl (80.0-96.0); PLATELET COUNT, AUTOMATED 159 10^3/uL (150-450); RED BLOOD COUNT 4.36 10^6/uL (4.00-5.40); RED CELL DISTRIBUTION WIDTH 17.2 % (11.5-14.5)
[2017-11-04] MEDS: HEPARIN SOD (PORCINE) 5000 UNITS/ML VIAL SC ×3 (06:20→21:00)
[2017-11-04 06:24] LABS: ANION GAP 7 MEQ/L (8-16); BLOOD UREA NITROGEN 5 MG/DL (7-18); CALCIUM LEVEL 8.6 MG/DL (8.5-10.1); CARBON DIOXIDE LEVEL 26 MEQ/L (21-32); CHLORIDE LEVEL 110 MEQ/L (98-107); CREATININE FOR GFR 0.91 MG/DL (0.55-1.30); GLOMERULAR FILTRATION RATE > 60.0 (>51); GLUCOSE, FASTING 152 MG/DL (70-100); MAGNESIUM LEVEL 1.8 MG/DL (1.8-2.4); POTASSIUM SERUM 3.6 MEQ/L (3.5-5.1); SODIUM LEVEL 143 MEQ/L (136-145)
[2017-11-04] MEDS: PANTOPRAZOLE 40MG INJ (PROTONIX) (C9113) IV (08:50)
[2017-11-04] MEDS: azaTHIOprine 50 MG TAB (J7500) PO ×2 (08:51→20:58)
[2017-11-04] MEDS: VENLAFAXINE **XR** 37.5 MG CAPSULE PO (08:51)
[2017-11-04] MEDS: ASPIRIN 81 MG ENTERIC TAB PO (08:54)
[2017-11-04] MEDS: GABAPENTIN 300 MG CAP PO ×2 (08:55→20:58)
[2017-11-04] MEDS: MULTIVITAMINS CHILDREN'S CHEWABLE TABLET PO (08:55)
[2017-11-04] MEDS: ASCORBIC ACID 500 MG TAB PO (08:55)
[2017-11-04] MEDS: PROPRANOLOL 60 MG LA CAP PO (08:55)
[2017-11-04] MEDS: FLUTICASONE PROP 0.05% NASAL SPRAY 16 GM (FLONASE) ×2 (08:56→21:04)
[2017-11-04] MEDS: MECLIZINE 12.5 MG TAB PO (11:04)
[2017-11-04 11:59] LABS: BEDSIDE GLUCOSE 147 MG/DL (70-105)
[2017-11-04 17:48] LABS: BEDSIDE GLUCOSE 153 MG/DL (70-105)
[2017-11-04] MEDS: ATORVASTATIN 20 MG TAB PO (20:58)
[2017-11-04] MEDS: ACETAMINOPHEN TAB 650MG DOSE (2X325MG) PO (20:59)
[2017-11-04] MEDS: NORTRIPTYLINE 25 MG CAP PO (20:59)
[2017-11-05] MEDS: CIPROFLOXACIN 400 MG in APPROPRIATE DILUENT 1 EA IV (03:48)
[2017-11-05] MEDS: D5W/0.45% SODIUM CHLORIDE 1,000 ML IV (03:48)
[2017-11-05] MEDS: HEPARIN SOD (PORCINE) 5000 UNITS/ML VIAL SC ×2 (05:14→14:00)
[2017-11-05] MEDS: metroNIDAZOLE 500 MG in APPROPRIATE DILUENT 1 EA IV ×2 (05:14→12:00)
[2017-11-05 06:19] LABS: HEMATOCRIT 30.5 % (36.0-47.0); HEMOGLOBIN 9.6 g/dl (12.0-15.5); MEAN CORPUSCULAR HEMOGLOBIN 22.2 pg (27.0-33.0); MEAN CORPUSCULAR HGB CONC 31.5 g/dl (32.0-36.5); MEAN CORPUSCULAR VOLUME 70.4 fl (80.0-96.0); PLATELET COUNT, AUTOMATED 152 10^3/uL (150-450); RED BLOOD COUNT 4.33 10^6/uL (4.00-5.40); RED CELL DISTRIBUTION WIDTH 17.1 % (11.5-14.5); WHITE BLOOD COUNT 9.5 10^3/uL (4.0-10.0)
[2017-11-05 06:39] LABS: ANION GAP 6 MEQ/L (8-16); BLOOD UREA NITROGEN 4 MG/DL (7-18); CALCIUM LEVEL 8.9 MG/DL (8.5-10.1); CARBON DIOXIDE LEVEL 27 MEQ/L (21-32); CHLORIDE LEVEL 108 MEQ/L (98-107); CREATININE FOR GFR 0.93 MG/DL (0.55-1.30); GLOMERULAR FILTRATION RATE > 60.0 (>51); GLUCOSE, FASTING 161 MG/DL (70-100); MAGNESIUM LEVEL 1.7 MG/DL (1.8-2.4); POTASSIUM SERUM 3.4 MEQ/L (3.5-5.1); SODIUM LEVEL 141 MEQ/L (136-145)
[2017-11-05 08:45] LABS: BEDSIDE GLUCOSE 164 MG/DL (70-105)
[2017-11-05 08:45] LABS: BEDSIDE GLUCOSE 140 MG/DL (70-105)
[2017-11-05 08:45] LABS: BEDSIDE GLUCOSE 149 MG/DL (70-105)
[2017-11-05] MEDS: GABAPENTIN 300 MG CAP PO (08:54)
[2017-11-05] MEDS: MULTIVITAMINS CHILDREN'S CHEWABLE TABLET PO (08:54)
[2017-11-05] MEDS: ASCORBIC ACID 500 MG TAB PO (08:54)
[2017-11-05] MEDS: VITAMIN D 1,000 INTERNATIONAL UNITS TABLET PO (08:54)
[2017-11-05] MEDS: ASPIRIN 81 MG ENTERIC TAB PO (08:55)
[2017-11-05] MEDS: PROPRANOLOL 60 MG LA CAP PO (08:56)
[2017-11-05] MEDS: azaTHIOprine 50 MG TAB (J7500) PO (08:56)
[2017-11-05] MEDS: PANTOPRAZOLE 40MG INJ (PROTONIX) (C9113) IV (08:56)
[2017-11-05] MEDS: FLUTICASONE PROP 0.05% NASAL SPRAY 16 GM (FLONASE) (08:57)
[2017-11-05] MEDS: HumaLOG INSULIN (NovoLOG) PER UNIT SC ×2 (10:35→12:47)
[2017-11-05] MEDS: VENLAFAXINE **XR** 37.5 MG CAPSULE PO (10:35)
[2017-11-05 11:36] LABS: BEDSIDE GLUCOSE 153 MG/DL (70-105)
[2017-11-05] MEDS: metroNIDAZOLE (FLAGYL) 500 MG TAB PO (14:00)
[2017-11-05] MEDS ORDERED: CIPROFLOXACIN 500 MG TAB PO (18:00)
== END 2017-11-05 14:57 | disposition home or self-care (01) | DRG 392 ==
LOC: M ED 22:46 → M ED INP 11-03 02:21 → M MSPAV 11-03 03:28
DX: K52.9 Noninfective gastroenteritis and colitis, unspecified (principal); E87.2 Acidosis; I10 Essential (primary) hypertension; E78.5 Hyperlipidemia, unspecified; J30.2 Other seasonal allergic rhinitis; Z79.82 Long term (current) use of aspirin; Z79.899 Other long term (current) drug therapy; E11.9 Type 2 diabetes mellitus without complications; I25.10 Atherosclerotic heart disease of native coronary artery without angina pectoris; Z86.73 Personal history of transient ischemic attack (TIA), and cerebral infarction without residual deficits; F32.9 Major depressive disorder, single episode, unspecified; F41.9 Anxiety disorder, unspecified; K21.9 Gastro-esophageal reflux disease without esophagitis; G62.9 Polyneuropathy, unspecified; I25.2 Old myocardial infarction; D72.829 Elevated white blood cell count, unspecified; E86.0 Dehydration; M32.10 Systemic lupus erythematosus, organ or system involvement unspecified; D50.9 Iron deficiency anemia, unspecified; R42 Dizziness and giddiness